=== PATIENT | female | born 1975 | race Caucasian/White ===

== ENCOUNTER 2020-10-28 10:33 | Emergency (ER) | payer BC, SELFPAY ==
--- NOTE | 2020-10-28 | CT_ITS ---
STUDY: CT ABDOMEN AND PELVIS WITH CONTRAST REASON FOR EXAM: Female, 45 years old. RUQ PAIN. PRIOR BALJEET/BSO, APPY AND TUMMY TUCK, BREAST IMPLANTS RADIATION DOSAGE (If Supplied By Facility): CTDIvol = ( 19.66 ) mGy, DLP = ( 1213.43 ) mGycm TECHNIQUE: Transaxial images were obtained from the dome of the diaphragm to the symphysis pubis without oral contrast. Oral and amp; IV Gastrografin and amp; 100mL Isovue-370 was administered. Sagittal and coronal images were reconstructed. Individualized dose optimization techniques were used for this CT. COMPARISON: None. FINDINGS: Unremarkable visualized lung bases. Partially visualized bilateral breast implants. The visualized portions of the heart are within normal limits. Fatty infiltration of the liver. No focal lesion is seen. Mild hepatomegaly. Normal gallbladder and extrahepatic biliary system. 1 cm low-density splenic lesion probably presenting cyst. Normal pancreas. Normal bilateral adrenal glands. Normal right kidney. Normal left kidney. Normal visualized stomach. Normal small intestine. The colon is under distended and suboptimally evaluated. There is non-visualization of the appendix. Normal abdominal aorta. Normal inferior vena cava. Normal retroperitoneum. Normal urinary bladder. There is absence of the uterus consistent with a prior hysterectomy. Normal abdominal wall. Degenerative changes of the level of L5-S1. CT/Abdomen/Pelvis WITH Contrast IMPRESSION: 1. Mild hepatomegaly and mild fatty infiltration of the liver. 2. Small splenic lesion probably representing cyst. 3. No demonstrated focal acute inflammatory process. Electronically Signed: Farrukh Kramer MD at 13:47 EST Tel , Service support ,
[2020-10-28 10:36] VITALS: BP 119/72; PULSE 84; RESP 16; TEMP 36.1; O2SAT 98; BMI 28.9
[2020-10-28 11:10] LABS: Absolute Lymphocyte Count 1.57 X10^3/uL (0.83-4.51); Absolute Neutrophil Count 3.6 X10^3/uL (2.0-7.7); Basophil# 0.03 X10^3/uL; Basophil% 0.5 % (0-1); Eosinophil# 0.16 X10^3/uL; Eosinophils% 2.8 % (0-5); Hematocrit 42.5 % (37-47); Hemoglobin 14.1 g/dL (12.0-15.0); Lymphocyte # 1.57 X10^3/ul (4.0); Lymphocyte % 27.7 % (19-41); Mean Corp Hgb Conc 33.2 g/dL (32-36); Mean Corpuscular Hgb 30.7 pg (27.0-32.0); Mean Corpuscular Volume 92.6 fL (81-99); Mean Platelet Vol. 9.4 fl (6.2-12.0); Monocyte# 0.26 X10^3/uL; Monocyte% 4.6 % (0-10); NRBC Flagged by Analyzer 0 % (0-5); Neutrophil # 3.63 X10^3/uL (2.7-7.7); Neutrophil % 64.2 % (47-70); Platelet Count 274 K/mm3 (150-450); RBC Distribution Width CV 13.5 % (11.6-14.6); Red Blood Count 4.59 M/mm3 (4.2-5.4); White Blood Count 5.7 K/mm3 (4.4-11.0)
--- NOTE | 2020-10-28 11:11 | ED.DCSUM_ITS ---
- ER Visit Summary Date of Service: 10/28/20 Chief Complaint: Abdominal pain, nausea, vomiting History of Present Illness: The patient is a 45 F who presents with abdominal pain that began yesterday. Patient states she had some nausea and vomiting yesterday. Patient describes her emesis as a dark sludge. Patient denies any hematemesis or coffee-ground emesis. Patient states she has been having some loose stools. Patient states these appear to be white. Patient denies any melena or hematochezia. Patient states her pain is over the epigastric area, right upper quadrant, and right lower quadrant. Patient describes her pain as sharp. Patient states nothing makes it worse and nothing makes it better. Patient does admit to some hematuria but denies any dysuria. Patient denies any fevers or chills. Physical Examination: Vital signs are stable. Patient is afebrile. Patient is in no acute distress. Oral mucosa is pink and moist. Neck is supple. Trachea is midline. There is no JVD. Heart was regular rate and rhythm. Lungs are clear and equal bilaterally. Abdomen is soft. Bowel sounds are normal. There is some epigastric, right upper quadrant, and right lower quadrant tenderness. There is no rebound or guarding noted. Cranial nerves II through XII are i ntact. There are no focal motor or sensory deficits noted peer extremities are intact. There is no calf tenderness or edema. Test Results: CBC was normal. Comprehensive metabolic profile was obtained. Total bilirubin was slightly elevated at 3.10, alk phos was 303, ALT was 831, and AST was 616. Lipase was normal. Urinalysis was normal. Because of the elevated liver enzymes, a CT scan of the abdomen pelvis was obtained. There is a fatty liver. There is no acute abnormality noted. This was interpreted by the radiologist and reviewed by myself. Emergency Department Course and Treatment: Patient is feeling better on reevaluation. Patient was instructed to eat a bland diet. Patient was instructed to follow-up with her primary care physician in 3 to 5 days for further evaluation. Patient understood and was agreeable with the plan. All questions were answered. Disposition: Discharge home Impression: 1. Abdominal pain 2. Hyperbilirubinemia 3. Transaminitis This note was generated with [employer] software. It may contain incorrect words, spelling, and punctuation that were not noted in review of the chart prior to signing ED Disposition - Plan for ED Patient: Disposition: Home or Assisted Living Diagnosis: Abdominal pain, Hyperbilirubinemia, Transaminitis Instructions: ED Abdominal Pain Unkn Cause Fem Referrals: Care Physician,No Primary [Primary Care Provider] - 5-7 Days
[2020-10-28 11:18] LABS: Mucous, Urine 0 SEEN /hpf (<or=2+); Red Blood Cells-Urine 0 SEEN /hpf (0-5)
[2020-10-28 11:19] LABS: Color, Urine Yellow (Yellow); Glucose, Dipstick Normal (Normal); Ketone-Dipstick Negative (Negative); Leukocyte Esterase-Dipstick 25 /ul (Negative); Nitrite-Dipstick Negative (Negative); Occult Blood-Urine 50 /ul (Negative); Protein-Dipstick 15 mg/dl (Negative); Urine Bilirubin Dipstick Negative (Negative); Urine Clarity Clear (Clear); Urine Urobilinogen 1 mg/dl (Normal)
[2020-10-28 11:24] LABS: ALB/GLOB Ratio 0.9 RATIO (0.9-2.4); AST(SGOT) 616 U/L (15-37); Alanine Aminotransfer ALT/SGPT 831 U/L (13-56); Albumin, Serum 3.7 g/dL (3.2-5.0); Alkaline Phosphatase 303 U/L (45-117); Anion Gap 5 (5-15); BUN 11 mg/dL (7-18); BUN/Creat Ratio 15.4 RATIO (10-20); Chloride 109 mmol/L (98-107); Creatinine, Serum 0.71 mg/dL (0.55-1.02); EST Glomerular Filtration Rate 94 mL/min (>60); Est Glom Filt Rate - Afr Amer 113 mL/min (>60); Estimated Creatinine Clearance 99.88 ml/min; Globulin 3.9 g/dL (2.2-4.2); Glucose 124 mg/dL (74-106); Lipase 129 U/L (73-393); Protein, Total 7.6 g/dL (6.4-8.2); Sodium Level 138 mmol/L (136-145)
[2020-10-28 11:25] LABS: Bacteria 1+ /hpf (None Seen); Squamous Epithelial Cells - UA 0-5 SEEN /hpf (5-10); White Blood Cells 0-5 SEEN /hpf (0-5)
[2020-10-28] MEDS: Morphine 4 MG/ML Syringe IV (11:29)
[2020-10-28] MEDS: Ondansetron 4 MG/2 ML Vial IV (11:29)
[2020-10-28 13:39] VITALS: BP 97/55; PULSE 67; RESP 15
[2020-10-28 14:46] VITALS: BP 104/69; PULSE 78; RESP 15
== END 2020-10-28 14:46 | disposition home or self-care (01) ==
PROVIDERS: Emergency Provider Emergency Medicine
DX: R10.11 Right upper quadrant pain (principal); R11.2 Nausea with vomiting, unspecified; F17.200 Nicotine dependence, unspecified, uncomplicated
CPT/HCPCS: 74177; 80053; 81001; 83690; 85025; 96374; 96375; 99283; Q9967; A4216; J2405

== ENCOUNTER → 2020-11-12 07:10 | Outpatient (CLI) | payer BC, SELFPAY ==
[2020-10-28 10:36] VITALS: BMI 28.9
--- NOTE | 2020-11-12 07:11 | BI_ITS ---
MAMMOGRAPHY - BILATERAL SCREENING REASON FOR EXAM: Female, 45 years old. Routine annual screening examination. PERTINENT HISTORY: Non-contributory. Bilateral breast implants. TECHNIQUE: Digital bilateral breast jocelyn (3D mammographic acquisition) in the CC and MLO projections. 2-D mediolateral oblique (MLO) and craniocaudad (CC) views of both breasts were obtained. CAD: Full Field Digital Mammography with Computer Added Detection was performed. COMPARISON: Comparison is made with prior outside examination dated 10/16/2017. FINDINGS: Breast Composition: The breasts are almost entirely fatty. There are no dominant masses or suspicious calcifications. Bilateral breast implants are now seen. No other significant abnormalities are identified. BI/SCRN MAMM (CAD)W/JOCELYN BILAT IMPRESSION: Negative screening mammogram. Bilateral breast implants. Yearly followup mammogram recommended. (A) ASSESSMENT CATEGORY: BIRADS Category 2: Benign. A letter regarding these results will be sent to the patient by the facility within 30 days. Approximately 10% of breast cancers are not detected by mammography. A normal mammogram should not delay biopsy of a clinically suspicious abnormality. [id number] Electronically Signed: Darvin Lin MD at 13:51 EST , Service support ,
== END ==
PROVIDERS: Referring Provider Nurse Practitioner; Visit Provider Nurse Practitioner
DX: Z12.31 Encounter for screening mammogram for malignant neoplasm of breast (principal)
CPT/HCPCS: 77063; 77067

== ENCOUNTER 2021-11-01 17:14 | Outpatient (CLI) | payer BC, SELFPAY ==
[2021-11-01 17:22] VITALS: BP 103/61; PULSE 102; RESP 16; TEMP 36.8; O2SAT 98; BMI 28.1
[2021-11-01] MEDS: 0.9% Saline Lock 10 ML Syringe IV (17:25)
[2021-11-01 17:56] VITALS: BP 98/66; PULSE 76; RESP 16; TEMP 37.1; O2SAT 99
[2021-11-01 18:44] VITALS: BP 105/59; PULSE 77; RESP 16; TEMP 37.2; O2SAT 97
== END 2021-11-01 23:59 | disposition home or self-care (01) ==
LOC: MS3OUT 17:14 → MS3 17:14
PROVIDERS: Referring Provider Nurse Practitioner Adult Health; Visit Provider Nurse Practitioner Adult Health
DX: U07.1 COVID-19 (principal)
CPT/HCPCS: J7050; M0245; Q0245; A4216

== ENCOUNTER 2023-08-24 20:06 | Emergency (ER) | payer BC, SELFPAY ==
[2023-08-24 20:11] VITALS: BP 115/76; PULSE 132; RESP 26; TEMP 37.3; O2SAT 93; BMI 27.0
--- NOTE | 2023-08-24 21:01 | EKG12_ITS ---
Test Reason : SOB/CP Blood Pressure : / mmHG Vent. Rate : 123 BPM Atrial Rate : 123 BPM P-R Int : 130 ms QRS Dur : 082 ms QT Int : 316 ms P-R-T Axes : 077 085 071 degrees QTc Int : 452 ms Sinus tachycardia Otherwise normal ECG Confirmed by KATHI MORSE, LAURE ([id number]), purchasing expeditor VENUS JOHNSON ([id number]) on 09/02/2023 10:21:50 AM Referred By: Confirmed By:LAURE ARMENTA MD
--- NOTE | 2023-08-24 21:25 | RAD_ITS ---
EXAM: XR CHEST, 1 VIEW CLINICAL INDICATION: chest pain TECHNIQUE: Frontal view of the chest. COMPARISON: No relevant prior studies available. FINDINGS: LUNGS AND PLEURAL SPACES: No significant abnormality. No consolidation or edema. No pneumothorax. No effusion. HEART: No significant abnormality. Cardiac silhouette not enlarged. MEDIASTINUM: Central airways and mediastinal contour are unremarkable. BONES/JOINTS: No significant abnormality. SOFT TISSUES: No significant abnormality. RAD/Chest 1 View (Portable) IMPRESSION: No radiographic evidence of acute cardiopulmonary disease. Electronically Signed: Bobo Sweet DO at 21:42 EST ,
[2023-08-24 22:06] VITALS: BP 97/69; PULSE 111; RESP 16; O2SAT 95
[2023-08-24 22:53] VITALS: O2SAT 95
--- NOTE | 2023-08-24 23:04 | EDS_ITS ---
HPI History of Present Illness Chief Complaint: Chest Pain Informant: patient Narrative Narrative: 48-year-old female presenting to the emergency room with a chief complaint of cough and tachycardia. Patient states that about 2 weeks ago on Thursday she abruptly became ill. By Thursday she was having low-grade fevers and cough. She went to an urgent care and was prescribed doxycycline and prednisone. She states that the prednisone really has not helped her and she continues to take the doxycycline which was prescribed for 10 days. She continues to have low- grade fevers and cough. Cough is occasionally productive. She states that her heart rate has been high at times up around 130 particularly with exertion. She denies any chest pain. She notes an intermittent cramp on the top of her foot. She was able to work yesterday. She states that since sitting in triage with a mask on she is started to feel better and wonders if the warm moist air underneath the mask is helped. She states that she did feel somewhat better in the cooler night air. No vomiting or diarrhea. She denies any urinary symptoms. PFSH PFSH Home Medications albuterol sulfate 90 mcg/actuation aerosol inhaler (Ventolin HFA) 2 puff inhalation Q4H PRN PRN Wheezing ##1 08/25/23 [Rx Last Taken Unknown] Allergy/AdvReac Type Severity Reaction Status Date / Time No Known Allergies Allergy Verified 08/24/23 20:10 Social History Smoking Status: Current every day smoker tobacco type: cigarettes ROS ROS ED Constitutional Constitutional ED: Reports chills and fever(s); Denies weight loss Eyes Eyes: Denies change in vision or diplopia ENT ENT ED: Denies ear pain, rhinorrhea or sore throat Cardiovascular Cardiovascular: Reports racing heartbeat; Denies chest pain, orthopnea or palpitations Respiratory/Chest Respiratory/Chest: Reports cough, dyspnea and dyspnea on exertion; Denies orthopnea Gastrointestinal Gastrointestinal: Denies abdominal pain, diarrhea, nausea or vomiting Genitourinary Genitourinary ED: Denies dysuria, hematuria or urinary frequency Musculoskeletal Musculoskeletal: Reports myalgias; Denies arthralgias, back pain or neck pain Integumentary Denies abscess or rash Neurologic Neurologic: Denies headache(s) or weakness Psychiatric Psychiatric: Denies anxiety, depression, suicidal ideation or suicidal thoughts Endocrine Endocrinology: Denies polydipsia, polyphagia or polyuria Allergic/Immunologic Allergic/Immunologic ED: Denies mouth swelling, tongue swelling or urticaria EXAM Physical Exam Const Vital Signs: 08/24/23 20:11 08/24/23 22:06 08/24/23 22:53 Temperature 99.2 F H Temperature Source Temporal Pulse Rate 132 H 111 H Respiratory Rate 26 H 16 Respiratory Effort Blood Pressure 115/76 97/69 Blood Pressure Mean 89 78 Pulse Ox 93 95 95 Oxygen Delivery Method Room Air Room Air Room Air 08/24/23 22:53 08/24/23 23:16 08/25/23 01:05 Temperature Temperature Source Pulse Rate 106 H 115 H Respiratory Rate 12 19 H Respiratory Effort Short of Breath Blood Pressure Blood Pressure Mean Pulse Ox 94 Oxygen Delivery Method Room Air Positive well nourished and well developed General Appearance ED: well developed HEENT Reports normocephalic, head/scalp atraumatic and moist mucous membranes Eyes PERRL and EOMs intact bilaterally Neck no lymphadenopathy, supple and no JVD Resp normal respiratory effort Resp Narrative: Slight expiratory wheeze with rhonchi at the bases at end expiration. This results in a cough Cardio regular rate, regular rhythm and no murmurs Rate: tachycardic GI normal to inspection, nondistended, normoactive bowel sounds and non-tender Palpation: soft Back/Spine no CVA tenderness and normal ROM Extremity normal to inspection General Extremety ED: Negative for edema General Extremity: Negative for edema Neuro oriented x3 and CN's II-XII intact bilaterally Sensorium / Orientation: alert Motor Exam: strength 5/5 throughout Psych mental status grossly normal Mood & Affect: Negative for depressed or tearful Skin no rashes or lesions noted and no wounds MDM MDM MDM Narrative Medical decision making narrative: No white count but my independent interpretation of this already chest x-ray is no acute process. Patient is in a sinus rhythm. White count 9.1. Troponin normal at 5. TSH 2.71. Glucose 128. Sodium potassium within normal limits. CO2 of 29 anion gap of 5. Normal creatinine. D-dimer significantly elevated 3.65. With ambulation the patient becomes tachycardic but is not hypoxic. Because of the unexplained tachycardia and the elevated D-dimer a CTA of the chest was obtained to rule out pulmonary embolism. This was negative for pulmonary embolism effusion or consolidation dissection. Atelectatic changes versus pneumonitis. I spoke with the patient regarding her results. She is going to decline prednisone/steroids which I think is reasonable as she is already trialed them last week with no success. I do question could this have been COVID and now has post-COVID tachycardia. Clinically though she appears well. I recommend her following up if not improving but giving this some more time. She would like to try to albuterol inhaler. She was advised this may make her heart rate slightly faster. She understands this. Currently laying in the bed talking with me she is 102 bpm. Stable blood pressure. Oxygenation at 96%. History & Record Review Discussion w/independent historian: Patient Lab Data Attestation: I reviewed the patient's lab results. Labs: Laboratory Results - last 24 hr 08/24/23 23:11 WBC 9.1 RBC 4.44 Hgb 13.4 Hct 41.3 MCV 93.0 MCH 30.2 MCHC 32.4 RDW Std Deviation 48.9 H RDW Coeff of Demetrio 14.4 Plt Count 223 MPV 9.2 Immature Gran % (Auto) 0.600 Neut % (Auto) 40.8 L Lymph % (Auto) 51.9 H [place] % (Auto) 4.6 Eos % (Auto) 1.5 Baso % (Auto) 0.6 Absolute Neuts (auto) 3.7 Absolute Lymphs (auto) 4.71 H Nucleated RBC % 0 Differential Comment SCANNED Atypical Lymphocytes RARE D-Dimer Quant (PE/DVT) 3.65 H* Sodium 138 Potassium 3.8 Chloride 104 Carbon Dioxide 29.0 Anion Gap 5 BUN 17 Creatinine 0.85 Estim Creat Clear Calc 77.86 Est GFR (MDRD) Af Amer 92 Est GFR (MDRD) Non-Af 76 BUN/Creatinine Ratio 20.1 H Glucose 128 H Calcium 8.7 Troponin I High Sens 5 TSH 2.71 Radiography Diagnostic Testing: Clinical Impression(s) from Imaging Studies Chest X-Ray 08/24/23 21:25 IMPRESSION: No radiographic evidence of acute cardiopulmonary disease. Electronically Signed: Bobo Sweet DO at 21:42 EST , Chest CTA 08/25/23 01:17 IMPRESSION: Negative CTA chest examination, without a demonstrated pulmonary embolism or arterial dissection. Mild posterior dependent atelectasis with diffuse interstitial prominence, suggestive of diffuse pneumonitis. No pleural effusion or pneumothorax. 3.6 mm nodule in the right upper lobe which may be further assessed with follow-up CT chest in 6-12 months to evaluate stability depending on risk factors. Electronically Signed: Angelia Castro MD at 2:47 EST , EKG Initial EKG: Attestation: I personally reviewed and interpreted this EKG as follows: Comments: Sinus tachycardia with a ventricular rate of 123 bpm no concerning features of ACS noted. Discharge Plan Triage Chief Complaint: Chest Pain ED Provider: Brandon Bond Dx/Rx/DC Orders Clinical Impression: Acute viral syndrome, Tachycardia Instructions: Understanding Tachycardia, ED Viral Syndrome (Adult) Prescriptions: New albuterol sulfate [Ventolin HFA] 90 mcg/actuation HFA aerosol inhaler 2 puff inhalation Q4H PRN PRN (Reason: Wheezing) Qty: 1 0RF Rx Instructions: with spacer Primary Care Provider: Care Physician,No Primary Referrals: Lupe Samuel MD [Med Staff - Active Staff] - As Needed (For cardiology) Care Physician,No Primary [Primary Care Provider] - Disposition Disposition: Home, Self Care
[2023-08-24] MEDS: Ipratropium/Albuterol Sulfate 3 ML AMPUL.NEB INHALATION (23:15)
[2023-08-24 23:16] VITALS: PULSE 106; RESP 12
[2023-08-24 23:29] LABS: Absolute Lymphocyte Count 4.71 X10^3/uL (0.83-4.51); Absolute Neutrophil Count 3.7 X10^3/uL (2.0-7.7); Basophil# 0.05 X10^3/uL; Basophil% 0.6 % (0-1); Eosinophil# 0.14 X10^3/uL; Eosinophils% 1.5 % (0-5); Hematocrit 41.3 % (37-47); Hemoglobin 13.4 g/dL (12.0-15.0); Lymphocyte # 4.71 X10^3/ul (0.83-4.51); Lymphocyte % 51.9 % (19-41); Mean Corp Hgb Conc 32.4 g/dL (32-36); Mean Corpuscular Hgb 30.2 pg (27.0-32.0); Mean Platelet Vol. 9.2 fl (6.2-12.0); Monocyte# 0.42 X10^3/uL; Monocyte% 4.6 % (0-10); NRBC Flagged by Analyzer 0 % (0-5); Neutrophil # 3.71 X10^3/uL (2.7-7.7); Neutrophil % 40.8 % (47-70); POSITIVE MORPHOLOGY YES; Platelet Count 223 K/mm3 (150-450); RBC Distribution Width CV 14.4 % (11.6-14.6); RBC Distribution Width SD 48.9 fl (35.1-43.9); Red Blood Count 4.44 M/mm3 (4.2-5.4); White Blood Count 9.1 K/mm3 (4.4-11.0)
[2023-08-24 23:40] LABS: Differential Indicated SCAN CRITERIA MET
[2023-08-24 23:54] LABS: Anion Gap 5 (5-15); BUN 17 mg/dL (7-18); BUN/Creat Ratio 20.1 RATIO (10-20); Calcium,Total 8.7 mg/dL (8.5-10.1); Chloride 104 mmol/L (98-107); Creatinine, Serum 0.85 mg/dL (0.55-1.02); EST Glomerular Filtration Rate 76 mL/min (>60); Est Glom Filt Rate - Afr Amer 92 mL/min (>60); Estimated Creatinine Clearance 77.86 ml/min; Glucose 128 mg/dL (74-106); Potassium 3.8 mmol/L (3.5-5.1); Sodium Level 138 mmol/L (136-145); Troponin-I HS (w/2H Reflex) 5 pg/mL (3.0-54.0)
[2023-08-25 00:12] LABS: Thyroid Stim Hormone (TSH) 2.71 uIU/mL (0.358-3.74)
[2023-08-25 00:34] LABS: Atypical Lymphocyte RARE %; Differential Comment SCANNED
[2023-08-25 01:05] VITALS: PULSE 115; RESP 19; O2SAT 94; O2SAT 95
[2023-08-25 01:16] LABS: D-Dimer Quantitative (DVT/PE) 3.65 FEU/ug/m (0.27-0.49)
--- NOTE | 2023-08-25 01:17 | CT_ITS ---
STUDY: CTA CHEST REASON FOR EXAM: Female, 48 years old. pulmonary embolism RADIATION DOSAGE (If Supplied By Facility): CTDIvol = ( 13.84 ) mGy, DLP = ( 421.83 ) mGycm TECHNIQUE: The examination was performed with the intravenous administration of IV 100mL Isovue-370. Post-processing of the angiographic images was performed, with multiplanar reformation and 3D reconstruction. Individualized dose optimization techniques were used for this CT. COMPARISON: None. FINDINGS: Normal enhancement of the main pulmonary artery and right and left pulmonary arteries. Normal enhancement of the bilateral peripheral pulmonary arteries. There is no demonstrated pulmonary embolism. Normal thoracic aorta and visualized great vessels. There is no demonstrated aortic dissection. Normal heart and pericardium. Normal mediastinum. Normal hilar regions. Normal visualized trachea and bronchi. The lungs are well expanded. Small nodule within the right upper lobe measuring 3.6 mm. Mild posterior dependent atelectasis. Mild diffuse interstitial and nodular prominence, remainder of the lung luna are clear. Normal pleura. Normal chest wall structures. Normal osseous structures. Normal visualized upper abdomen. CT/CTA Chest W/WO Contrast IMPRESSION: Negative CTA chest examination, without a demonstrated pulmonary embolism or arterial dissection. Mild posterior dependent atelectasis with diffuse interstitial prominence, suggestive of diffuse pneumonitis. No pleural effusion or pneumothorax. 3.6 mm nodule in the right upper lobe which may be further assessed with follow-up CT chest in 6-12 months to evaluate stability depending on risk factors. Electronically Signed: Angelia Castro MD at 2:47 EST ,
[2023-08-25 01:18] LABS: Reflex Troponin-HS? (from REC) Y
[2023-08-25 03:14] VITALS: BP 101/72; PULSE 103; RESP 18; O2SAT 94
== END 2023-08-25 03:15 | disposition home or self-care (01) ==
PROVIDERS: Emergency Provider Emergency Medicine; Visit Provider Emergency Medicine
DX: B34.9 Viral infection, unspecified (principal); R00.0 Tachycardia, unspecified; F17.210 Nicotine dependence, cigarettes, uncomplicated
CPT/HCPCS: 71045; 71275; 80048; 84443; 84484; 85025; 85379; 93005; 94640; 99284; Q9967; A4216

== ENCOUNTER → 2023-08-31 | Outpatient (CLI) | payer BC, SELFPAY | END | disposition home or self-care (01) | PROVIDERS: Referring Provider Physician Assistant Surgical; Visit Provider Physician Assistant Surgical | DX: R31.9 Hematuria, unspecified (principal) | CPT/HCPCS: 87086 ==

== ENCOUNTER → 2023-09-01 | Outpatient (CLI) | payer BC, SELFPAY ==
--- NOTE | 2023-09-01 08:41 | US_ITS ---
STUDY: ABDOMINAL ULTRASOUND -[left UPPER QUADRANT REASON FOR VISIT: Female, 48 years old splenic mass TECHNIQUE: Ultrasound evaluation of the left upper quadrant was performed with real-time and static grady-scale imaging. TECHNICAL QUALITY: Adequate. COMPARISON: None. FINDINGS: Spleen is enlarged measuring 16 x 7.2 x 7.6 cm . There is a cluster of tiny cysts or multi septated cyst measuring approximately 1.5 x 1.4 x 1.3 cm Left kidney measures 13 x 6.2 x 4.8 cm. No obstruction or mass. US/Abdomen Limited IMPRESSION: Probable multi septated cyst in the spleen measuring approximately 1.5 x 1.4. Retrospectively, there was a small hypoattenuated nodule in the spleen in October 2020 not significantly changed in size Electronically Signed: Ruperto Irvin MD at 19:55 EST ,
--- NOTE | 2023-09-01 14:43 | PFTCOMP ---
COMPLETE PULMONARY FUNCTION TEST INTERPRETATION Brief HPI: Patient is a 48-year-old female, currently under the care of Azucena Murphy, who presents to [facility] for complete pulmonary function tests secondary to diagnosis of interstitial lung disease. Respiratory therapist reports good effort and reproducible results. Interpretation: Forced expiration spirometry shows no large airways obstructive ventilatory defect with an FEV1 of 80% predicted. There is no significant bronchodilator response by strict ATS criteria. Spirograms are of good quality and plateau slowly, indicating slowly emptying areas of the lungs. The respiratory flow volume loop shows decreased expiratory flow rates at high lung volumes consistent with small airways obstruction. Lung volumes by body plethysmography show a normal total lung capacity at 5.82 L, 107% predicted. FRC and RV are elevated out of proportion. Lung volume measurements are consistent with hyperinflation and air-trapping. Diffusion capacity by carbon monoxide is decreased at 62% predicted. The airway resistance is slightly elevated. No previous pulmonary function tests were available for review. Impression: Isolated reduction in diffusion capacity with some stigmata of possible concomitant small airways disease
== END | disposition home or self-care (01) ==
PROVIDERS: Referring Provider Nurse Practitioner Family; Visit Provider Nurse Practitioner Family
DX: J84.89 Other specified interstitial pulmonary diseases (principal); R16.1 Splenomegaly, not elsewhere classified
CPT/HCPCS: 76705; 94060; 94726; 94729

== ENCOUNTER → 2023-09-18 | Outpatient (CLI) | payer BC, SELFPAY ==
--- NOTE | 2023-09-18 12:42 | BI_ITS ---
MAMMOGRAPHY - BILATERAL SCREENING REASON FOR EXAM: Female, 48 years old. Routine annual screening examination. PERTINENT HISTORY: Non-contributory. Bilateral breast reduction surgery. Bilateral implants. TECHNIQUE: Digital bilateral breast jocelyn (3D mammographic acquisition) in the CC and MLO projections. 2-D mediolateral oblique (MLO) and craniocaudad (CC) views of both breasts were obtained. CAD: Full Field Digital Mammography with Computer Added Detection was performed. COMPARISON: Comparison is made with prior study dated November 12, 2020. FINDINGS: Breast Composition: There are scattered areas of fibroglandular density. There are no dominant masses or suspicious calcifications. Stable appearance of the bilateral breast implants. Stable calcified nodule in the inferior medial aspect of the left breast. No other significant abnormalities are identified. There has been no significant change since the prior study. BI/SCRN MAMM (CAD)W/JOCELYN BILAT IMPRESSION: Stable bilateral screening mammogram. Yearly follow-up mammogram recommended. (A) ASSESSMENT CATEGORY: BIRADS Category 2: Benign. A letter regarding these results will be sent to the patient by the facility within 30 days. Approximately 10% of breast cancers are not detected by mammography. A normal mammogram should not delay biopsy of a clinically suspicious abnormality. [id number] Electronically Signed: Darvin Lin MD at 14:36 EST ,
--- NOTE | 2023-09-18 13:59 | CT_ITS ---
STUDY: CT ABDOMEN AND PELVIS WITH AND WITHOUT CONTRAST REASON FOR EXAM: Female, 48 years old. abdominal pain, elevated WBC RADIATION DOSAGE (If Supplied By Facility): CTDIvol = ( 15.66 ) mGy, DLP = ( 1290.90 ) mGycm TECHNIQUE: Transaxial images were obtained from the dome of the diaphragm to the symphysis pubis with oral contrast. Oral Gastrografin was administered. Sagittal and coronal images were reconstructed. Individualized dose optimization techniques were used for this CT. COMPARISON: 10/28/2020 FINDINGS: The visualized lung bases are unremarkable. The visualized portions of the heart are within normal limits. Normal liver. There are surgical clips in the gallbladder fossa consistent with a prior cholecystectomy. 1 cm cyst in the inferior aspect of the spleen. Normal pancreas. Normal bilateral adrenal glands. 2 mm nonobstructing stone lower pole right kidney. No hydronephrosis, ureteral stone, ureteral dilatation. Normal left kidney. Normal visualized stomach. Normal small intestine. Normal colon. There is non-visualization of the appendix. Normal abdominal aorta. Normal inferior vena cava. Normal retroperitoneum. Normal urinary bladder. Normal abdominal wall. Normal osseous structures. CT/CT Abd/Pelvis W/WO Contrast IMPRESSION: 2 mm nonobstructing right renal stone. Electronically Signed: Fercho Fischer MD at 18:03 EST ,
== END | disposition home or self-care (01) ==
PROVIDERS: PCP Nurse Practitioner Family; Referring Provider Nurse Practitioner Family; Visit Provider Nurse Practitioner Family
DX: Z12.31 Encounter for screening mammogram for malignant neoplasm of breast (principal); R10.13 Epigastric pain
CPT/HCPCS: 74178; 77063; 77067; Q9967; A4216

== ENCOUNTER → 2023-09-18 | Outpatient (CLI) | payer BC, SELFPAY ==
[2023-09-18 12:50] LABS: Absolute Lymphocyte Count 5.66 X10^3/uL (0.83-4.51); Basophil# 0.04 X10^3/uL; Basophil% 0.3 % (0-1); Eosinophil# 0.12 X10^3/uL; Eosinophils% 0.8 % (0-5); Hematocrit 42.3 % (37-47); Lymphocyte # 5.66 X10^3/ul (0.83-4.51); Lymphocyte % 38.4 % (19-41); Mean Corp Hgb Conc 33.1 g/dL (32-36); Mean Corpuscular Volume 90.6 fL (81-99); Mean Platelet Vol. 9.3 fl (6.2-12.0); Monocyte# 0.87 X10^3/uL; Monocyte% 5.9 % (0-10); NRBC Flagged by Analyzer 0 % (0-5); Neutrophil # 8.01 X10^3/uL (2.7-7.7); Neutrophil % 54.3 % (47-70); POSITIVE DIFFERENTIAL YES; POSITIVE MORPHOLOGY YES; Platelet Count 391 K/mm3 (150-450); RBC Distribution Width CV 14.6 % (11.6-14.6); RBC Distribution Width SD 48.6 fl (35.1-43.9); Red Blood Count 4.67 M/mm3 (4.2-5.4); White Blood Count 14.7 K/mm3 (4.4-11.0)
[2023-09-18 12:58] LABS: Differential Indicated SCAN CRITERIA MET
[2023-09-18 13:13] LABS: AST(SGOT) 20 U/L (15-37); Alanine Aminotransfer ALT/SGPT 26 U/L (13-56); Albumin, Serum 3.9 g/dL (3.2-5.0); Alkaline Phosphatase 187 U/L (45-117); Bilirubin, Direct 0.13 mg/dL (0.00-0.30); Globulin 3.8 g/dL (2.2-4.2); Protein, Total 7.7 g/dL (6.4-8.2)
== END | disposition home or self-care (01) ==
LOC: LABSPEC 12:36
PROVIDERS: PCP Nurse Practitioner Family; Referring Provider Nurse Practitioner Family; Visit Provider Nurse Practitioner Family
DX: R10.13 Epigastric pain (principal)
CPT/HCPCS: 80076; 85025

== ENCOUNTER 2023-09-20 16:20 | Emergency (ER) | payer BC, SELFPAY ==
[2023-09-20 16:21] VITALS: BP 113/71; PULSE 128; RESP 16; TEMP 36.6; O2SAT 99; BMI 26.3
--- NOTE | 2023-09-20 16:52 | EX.ED.GENINJ ---
HPI <TIP Simeon - Last Filed: 09/20/23 18:24> History of Present Illness Chief Complaint: Other, Pain/Inj Narrative Narrative: 48-year-old female presents with multiple complaints. She states early in August she was treated for pneumonia with doxycycline and prednisone which she took for 4 days. She was seen in the ED on 08/24 because she was not feeling better and was tachycardic and had a CTA which showed atelectasis and pneumonitis. She followed up with her PCP who prescribed Trelegy, fenofibrate and vitamins. A couple days ago she developed hives which improved with Yarely. She states over the last 4 days she has developed joint pains that change locations. Sometimes she has sharp pain in her shoulders, knees, or ankles. She feels like it is in the tendons. Today she has pain in her right shoulder and left side of her neck and states she has to hold her head up or the tendon will not support her head. She has no headache. No radicular pain into her extremities. No fever or chills. PFSH <TIP Simeon - Last Filed: 09/20/23 18:24> PFSH Home Medications albuterol sulfate 90 mcg/actuation aerosol inhaler (Ventolin HFA) 2 puff inhalation Q4H PRN PRN Wheezing ##1 08/25/23 [Rx Last Taken Unknown] fluticasone fur. 100 mcg-umeclid 62.5 mcg-vilant 25 mcg inhalat.powder (Trelegy Ellipta) 1 inh inhalation Q24H 09/20/23 [History Last Taken Unknown] naproxen 500 mg tablet (Naprosyn) 500 mg PO BID PRN pain #20 tabs 09/20/23 [Rx Last Taken Unknown] Allergy/AdvReac Type Severity Reaction Status Date / Time No Known Allergies Allergy Verified 09/20/23 16:24 Social History Smoking Status: Current every day smoker tobacco type: cigarettes ROS <TIP Simeon - Last Filed: 09/20/23 18:24> ROS ED ROS Narrative Constitutional: Negative for fever, chills, malaise. CVS: Negative for palpitations, chest pain, syncope. Respiratory: Negative for shortness of breath. GI: Negative for abdominal pain, nausea, vomiting, melena, hematochezia. : Negative for dysuria, hematuria or frequency. Neuro: Negative for headache, motor/sensory dysfunction. Musc: Positive for arthralgias. EXAM <TIP Simeon - Last Filed: 09/20/23 18:24> Physical Exam Narrative Exam Narrative: CONST: Patient sitting in no acute distress. EYES: Normal inspection. ENT: Normal inspection, moist mucous membranes. NECK: Normal inspection. No midline tenderness or step-offs, no meningismus. RESP: No respiratory distress, CTAB. CVS: Regular rate and rhythm, no murmur, no gallop. SKIN: Color normal, no rash, warm, dry, intact. EXTREMITIES: Normal appearance, pain over right trapezius, no bony tenderness of upper or lower extremities, 2+ radial DP pulses. Pain with movement of the right shoulder joint. NEURO: Oriented x4. PSYCH: Normal affect. Const Vital Signs: 09/20/23 16:21 09/20/23 17:15 09/20/23 17:53 Temperature 97.9 F Temperature Source Temporal Pulse Rate 128 H 95 Respiratory Rate 16 20 H Respiratory Effort Normal Non-Labored Respiratory Pattern Normal Blood Pressure 113/71 102/69 Blood Pressure Mean 85 80 Pulse Ox 99 94 Oxygen Delivery Method Room Air Room Air 09/20/23 18:31 Temperature Temperature Source Pulse Rate 95 Respiratory Rate 18 Respiratory Effort Respiratory Pattern Blood Pressure 99/77 Blood Pressure Mean 84 Pulse Ox 96 Oxygen Delivery Method <Dr. Familia Williamson MD - Last Filed: 09/20/23 19:47> Physical Exam Const Vital Signs: 09/20/23 16:21 09/20/23 17:15 09/20/23 17:53 Temperature 97.9 F Temperature Source Temporal Pulse Rate 128 H 95 Respiratory Rate 16 20 H Respiratory Effort Normal Non-Labored Respiratory Pattern Normal Blood Pressure 113/71 102/69 Blood Pressure Mean 85 80 Pulse Ox 99 94 Oxygen Delivery Method Room Air Room Air 09/20/23 18:31 Temperature Temperature Source Pulse Rate 95 Respiratory Rate 18 Respiratory Effort Respiratory Pattern Blood Pressure 99/77 Blood Pressure Mean 84 Pulse Ox 96 Oxygen Delivery Method MDM <TIP Simeon - Last Filed: 09/20/23 18:24> MDM MDM Narrative Medical decision making narrative: History gathered from: Patient and spouse Patient presents with traveling arthralgias over the last 4 days. She appears uncomfortable but nontoxic. She is tachycardic at 128 with otherwise normal vital signs. She is tearful and crying during the exam which may contribute to her elevated heart rate. She states her right shoulder hurts and is having her lift her arm up and down for her. I can move it to full passive range of motion although she does have pain in the shoulder. She is tender over right trapezius. She is neurovascularly intact. Labs show white count of 12.0 down from 2 days ago. Normal electrolytes and renal function, glucose 146 with normal CO2 and anion gap, total CK is 33 which rules out rhabdomyolysis. Patient was concerned with her history of pneumonia and her white count that she may still have residual infection. CXR shows no acute process. She feels improved after Toradol. Her symptoms may be from her recently starting fenofibrate but I discussed if it does not improve after she stopped this to see her doctor for a rheumatologic workup for polyarthralgias. I prescribed naproxen and she was discharged in stable condition. Differential: Medication side effect, rheumatologic disease, electrolyte abnormality, rhabdomyolysis Lab Data Attestation: I reviewed the patient's lab results. Labs: Laboratory Results - last 24 hr 09/20/23 16:52 WBC 12.0 H RBC 4.35 Hgb 12.8 Hct 40.0 MCV 92.0 MCH 29.4 MCHC 32.0 RDW Std Deviation 48.5 H RDW Coeff of Demetrio 14.4 Plt Count 335 MPV 9.0 Immature Gran % (Auto) 0.400 Neut % (Auto) 73.0 H Lymph % (Auto) 19.7 [place] % (Auto) 5.8 Eos % (Auto) 0.8 Baso % (Auto) 0.3 Absolute Neuts (auto) 8.8 H Absolute Lymphs (auto) 2.36 Nucleated RBC % 0 Sodium 136 Potassium 3.9 Chloride 106 Carbon Dioxide 26.0 Anion Gap 4 L BUN 11 Creatinine 0.68 Estim Creat Clear Calc 97.32 Est GFR (MDRD) Af Amer 118 Est GFR (MDRD) Non-Af 97 BUN/Creatinine Ratio 16.1 Glucose 146 H Calcium 9.2 Total Creatine Kinase 33 Radiography Diagnostic Testing: Clinical Impression(s) from Imaging Studies Chest X-Ray 09/20/23 17:00 IMPRESSION: No radiographic evidence of acute cardiopulmonary disease. Electronically Signed: Bobo Sweet DO at 17:10 EST , ED attending interpretation of 1-view chest x-ray shows normal heart size, no acute infiltrate. <Dr. Familia Williamson MD - Last Filed: 09/20/23 19:47> [facility] Lab Data Labs: Laboratory Results - last 24 hr 09/20/23 16:52 WBC 12.0 H RBC 4.35 Hgb 12.8 Hct 40.0 MCV 92.0 MCH 29.4 MCHC 32.0 RDW Std Deviation 48.5 H RDW Coeff of Demetrio 14.4 Plt Count 335 MPV 9.0 Immature Gran % (Auto) 0.400 Neut % (Auto) 73.0 H Lymph % (Auto) 19.7 [place] % (Auto) 5.8 Eos % (Auto) 0.8 Baso % (Auto) 0.3 Absolute Neuts (auto) 8.8 H Absolute Lymphs (auto) 2.36 Nucleated RBC % 0 Sodium 136 Potassium 3.9 Chloride 106 Carbon Dioxide 26.0 Anion Gap 4 L BUN 11 Creatinine 0.68 Estim Creat Clear Calc 97.32 Est GFR (MDRD) Af Amer 118 Est GFR (MDRD) Non-Af 97 BUN/Creatinine Ratio 16.1 Glucose 146 H Calcium 9.2 Total Creatine Kinase 33 Radiography Diagnostic Testing: Clinical Impression(s) from Imaging Studies Chest X-Ray 09/20/23 17:00 IMPRESSION: No radiographic evidence of acute cardiopulmonary disease. Electronically Signed: Bobo Sweet DO at 17:10 EST , Treatment and Re-Evaluation Narrative: I have personally performed a face to face assessment of the patient and have reviewed the LINETTE Note. I performed a substantive portion of the visit including all aspects of the following. My spears findings include: History: Patient complains of sore joints and tendons. They move all different areas of her body. She is also getting intermittent hives. This started after she started fenofibrate. She now stopped the medicine but its only been a few days and it has a half-life up to 30 hours. Antihistamines do help somewhat. She has seen her doctor about this. Exam: Patient awake alert. There are no signs of swollen actual joints although she does have soreness and stiffness in many areas. There is a little bit of hint of hives here and there but it is very mild. No lymphangitic streaking. Lungs are clear. Medical Decision Making: Patient with blood work done including CPK which was normal. I think this is likely a reaction to her fenofibrate. She has stopped this but the reaction can continue and the medicine does have a long half-life. We discussed options for pain control. Since she did get good relief with Toradol, I think Naprosyn may be one of her best options. Discharge Plan Triage Chief Complaint: Other, Pain/Inj ED Midlevel Provider: Nicole Peacock ED Provider: Familia Williamson Dx/Rx/DC Orders Clinical Impression: Polyarthralgia Instructions: ED Arthralgia Prescriptions: New naproxen [Naprosyn] 500 mg tablet 500 mg PO BID PRN (Reason: pain) Qty: 20 0RF No Action albuterol sulfate [Ventolin HFA] 90 mcg/actuation HFA aerosol inhaler 2 puff inhalation Q4H PRN PRN (Reason: Wheezing) Qty: 1 0RF Rx Instructions: with spacer Trelegy Ellipta 100-62.5-25 mcg blister with device 1 inh INHALATION Q24H Patient Comments: INHALE 1 PUFF BY MOUTH DAILY Primary Care Provider: Azucena Murphy Referrals: Azucena Murphy, ROBERTO-C [Primary Care Provider] - Activity Restrictions/Additional Instructions: Take naproxen as needed and follow up with your primary care doctor Disposition Disposition: Home, Self Care Discharge Date/Time: 09/20/23 18:56
[2023-09-20] MEDS: Ketorolac 30 MG/ML Syringe IV (17:00)
--- NOTE | 2023-09-20 17:00 | RAD_ITS ---
EXAM: XR CHEST, 1 VIEW CLINICAL INDICATION: cough TECHNIQUE: Frontal view of the chest. COMPARISON: 08/24/2023 FINDINGS: LUNGS AND PLEURAL SPACES: No significant abnormality. No consolidation or edema. No pneumothorax. No effusion. HEART: No significant abnormality. Cardiac silhouette not enlarged. MEDIASTINUM: Central airways and mediastinal contour are unremarkable. BONES/JOINTS: No significant abnormality. No acute fracture. SOFT TISSUES: No significant abnormality. RAD/Chest 1 View (Portable) IMPRESSION: No radiographic evidence of acute cardiopulmonary disease. Electronically Signed: Bobo Sweet DO at 17:10 EST ,
[2023-09-20 17:02] LABS: Absolute Lymphocyte Count 2.36 X10^3/uL (0.83-4.51); Absolute Neutrophil Count 8.8 X10^3/uL (2.0-7.7); Basophil# 0.03 X10^3/uL; Basophil% 0.3 % (0-1); Eosinophil# 0.09 X10^3/uL; Eosinophils% 0.8 % (0-5); Hemoglobin 12.8 g/dL (12.0-15.0); Lymphocyte # 2.36 X10^3/ul (0.83-4.51); Lymphocyte % 19.7 % (19-41); Mean Corpuscular Hgb 29.4 pg (27.0-32.0); Monocyte# 0.69 X10^3/uL; Monocyte% 5.8 % (0-10); NRBC Flagged by Analyzer 0 % (0-5); Neutrophil # 8.78 X10^3/uL (2.7-7.7); Platelet Count 335 K/mm3 (150-450); RBC Distribution Width CV 14.4 % (11.6-14.6); RBC Distribution Width SD 48.5 fl (35.1-43.9); Red Blood Count 4.35 M/mm3 (4.2-5.4)
[2023-09-20 17:23] LABS: Anion Gap 4 (5-15); BUN 11 mg/dL (7-18); BUN/Creat Ratio 16.1 RATIO (10-20); CPK Total, Creatine Kinase 33 U/L (26-192); Calcium,Total 9.2 mg/dL (8.5-10.1); Chloride 106 mmol/L (98-107); Creatinine, Serum 0.68 mg/dL (0.55-1.02); EST Glomerular Filtration Rate 97 mL/min (>60); Est Glom Filt Rate - Afr Amer 118 mL/min (>60); Estimated Creatinine Clearance 97.32 ml/min; Glucose 146 mg/dL (74-106); Potassium 3.9 mmol/L (3.5-5.1); Sodium Level 136 mmol/L (136-145)
[2023-09-20 17:53] VITALS: BP 102/69; PULSE 95; RESP 20; O2SAT 94
[2023-09-20 18:31] VITALS: BP 99/77; PULSE 95; RESP 18; O2SAT 96
== END 2023-09-20 18:56 | disposition home or self-care (01) ==
PROVIDERS: Physician Assistant; Emergency Provider Emergency Medicine; PCP Nurse Practitioner Family; Visit Provider Emergency Medicine
DX: M25.511 Pain in right shoulder (principal); F17.210 Nicotine dependence, cigarettes, uncomplicated
CPT/HCPCS: 71045; 80048; 82550; 85025; 96374; 99282; A4216

== ENCOUNTER → 2023-10-02 | Outpatient (CLI) | payer BC, SELFPAY ==
[2023-10-02 12:34] VITALS: PULSE 105; PULSE 107; PULSE 108; PULSE 87; PULSE 90; PULSE 96; O2SAT 95; O2SAT 96; O2SAT 97
--- NOTE | 2023-10-03 05:41 | PCM.PSN.6M ---
PSN 6 Minute Walk Test 6 Minute Walk Test 6 Minute Walk Test: 6 Minute Walk Test PSN:6-Minute Walk Test Start: 10/02/23 12:33 Freq: Status: Active Protocol: [id number] Document 10/02/23 12:34 HELEN (Rec: 10/02/23 12:35 HELEN [id number]) 6 Minute Walk Test Date Performed 10/02/23 Time Performed 12:30 Height 5 ft 7 in Weight: 73.936 kg Weight in Pounds 163.[address]: Azucena Murphy Assistive device used: None Pre-test Oxygen Delivery Method Room Air Pulse Ox 95 Pulse Rate (60-100) 87 Dyspnea Tristian Scale (0-10) 0 Exertion [place]istian Scale (6-20) 6 1st minute Oxygen Delivery Method Room Air Pulse Ox 97 Pulse Rate (60-100) 96 2nd minute Oxygen Delivery Method Room Air Pulse Ox 95 Pulse Rate (60-100) 105 H 3rd minute Oxygen Delivery Method Room Air Pulse Ox 96 Pulse Rate (60-100) 108 H 4th minute Oxygen Delivery Method Room Air Pulse Ox 95 Pulse Rate (60-100) 108 H 5th minute Oxygen Delivery Method Room Air Pulse Ox 96 Pulse Rate (60-100) 107 H 6th minute Oxygen Delivery Method Room Air Pulse Ox 96 Pulse Rate (60-100) 108 H Dyspnea Tristian Scale (0-10) 1 Exertion [place]istian Scale (6-20) 11 Post-test Oxygen Delivery Method Room Air Pulse Ox 97 Pulse Rate (60-100) 90 Full Laps Walked 24 Partial Lap, Number of Tiles Walked 0 Total Distance Walked (ft) 1416 Interpretation Interpretation: The patient was able to ambulate 1416 feet over the course of 6 minutes on room air with no assistive devices or breaks. No significant desaturation, but did have an element of tachycardia as high as 108 bpm. These findings are consistent with a cardiovascular limitation exercise tolerance. Recommendations Recommendations: No supplemental oxygen is indicated at this time.
== END | disposition home or self-care (01) ==
LOC: PSN 12:13
PROVIDERS: PCP Nurse Practitioner Family; Referring Provider Nurse Practitioner Family; Visit Provider Nurse Practitioner Family
DX: R16.1 Splenomegaly, not elsewhere classified (principal); J84.89 Other specified interstitial pulmonary diseases
CPT/HCPCS: 94618

== ENCOUNTER → 2023-10-08 | Outpatient (CLI) | payer BC, OTHER, SELFPAY ==
--- OUTSIDE RECORDS SUMMARY | 2023-10-08 11:09 | XMS RPT_ITS | CCD ---
Author Name Unknown Address [email or web address] [place] [address] Organization [facility] Care Team Providers Care Funnel Coater Name Role Phone Manny Gamboa Unavailable Unavailable PROVIDER, UNKNOWN Unavailable Unavailable Manny Gamboa Unavailable Unavailable MANNY GAMBOA Unavailable Unavaila ble MANNY GAMBOA Unavailable Unavaila ble Melinda Schaeffer Unavailable Julius Harmon Unavailable Rolando Ayala Unavailable Unavailable Unavailable Unavailable Roxanne Elise Unavailable Unavailable Angelina Correa Unavailable Melinda Schaeffer CNP Unavailable Julius Harmon MD Unavailable Roxanne Elise LPN Unavailable Unavailable Rolando Ayala LPN Unavailable Unavailable Angelina Correa DO Unavailable Unavailable Unavailable Liya Calero Unavailable Melina MORSE, Allie Valdovinos Unavailable Melinda Schaeffer Attending Unavailable Melinda Schaeffer Consulting Unavailable Liya Almazan PA-C Unavailable Pcp MANAGER RECRUITING, No Primary Care Provider Unavailabl e Pcp MANAGER RECRUITING, No Primary Care Provider Unavailabl e Allergies Allergy Classification Reported Allergen(s) Allergy Type Date of Onset Reaction(s) Facility (3 sources) Morphine; Translations: [MORPHINE] Drug Allergy 11-02-2020 Rash [facility] (3 sources) oxyCODONE; Translations: [OXYCODONE] Drug Allergy 02-12-2021 Mental Status Change [facility] Medications Current Medications Medication Drug Class(es) Dates Sig (Normalized) Sig (Original) doxycycline hyclate 100 mg oral tablet (1 source) Tetracycline-clas s Drug Start: 08-16-2023 End: 08-26-2023 take 1 tablet by mouth twice daily doxycycline (VIBRA-TABS) 100 mg tablet Take 1 tablet by mouth two times a day for 10 days. 20 tablet 0 08/16/2023 08/26/2023 Active Completed/Discontinued Medications Medication Drug Class(es) Dates Sig (Normalized) Sig (Original) ascorbic acid 1000 mg oral tablet (2 sources) Vitamin C take 1 tablet by gladis th once daily Ascorbic Acid (VITAMIN C) 1,000 mg tablet Take 1,000 mg by mouth once daily. 0 Active Problems Active Problems Problem Classification Problem Date Documented Da te Episodic/Chronic Abdominal pain (20 sources) Abdominal pain; Translations: [Abdominal pain] 11-30-2020 Episodic Past or Other Problems Problem Classification Problem Date Documented Da te Episodic/Chronic Biliary tract disease (19 sources) Biliary calculus; Translations: [Cholelithiasis] Resolved: 03-05-2021 11-30-2020 Episodic Results Test Name Value Interpretation Reference Range Facil ity Vital Signs Date Time Vital Sign Value Performing Clinician Facility 10-30-2021 13:08-0500 Body height 172.72 cm Rolando Ayala LPN [facility] Work Phone: 10-30-2021 13:08-0500 Body mass index (BMI) [Ratio] 27.98 kg/m2 Rolando Ayala LPN [facility] Work Phone: 10-30-2021 13:08-0500 Body surface area Derived from formula 1.97 m2 Rolando Ayala PROCESS CONTROL SUPERVISOR [facility] Work Phone: 10-30-2021 13:08-0500 Body temperature 99.6 [degF] Rolando Ayala PROCESS CONTROL SUPERVISOR [facility] Work Phone: Encounters Encounter Date Encounter Type Care Provider Facility Start: 09-08-2023 Telephone encounter Liya tse PA-C Work Phone: [facility] Procedures Date Procedure Procedure Detail Performing Clinician Start: 10-31-2021 End: 10-31-2021 Virtual Office Visit Comments: See Note; NOTES: [facility] [address] [place] [address] OFFICE VISIT Date of Service: 10/31/21 MR#: [id number] Acct: [id number] Patient: GINNY YOO Rep #: [id number] : 1975 Provider: PAO verdugo Age/Sex: 46/F Location[place] [facility] Status: Signed Intake Intake Visit Reasons: COVID, MA Allergies No Known Allergies Allergy (Verified 10/31/21 10:32) PFSH Social History Smoking Status: Current every day smoker HPI HPI Details: Patient was informed that this visit will be billed to patient. This visit was conducted during COVID-19 pandemic. Details: Patient was informed that this visit will be billed to patient. This visit was conducted during COVID-19 pandemic. Statement read to the patient: This telehealth visit is being offered during our stay at home measures in response to the pandemic. It is subject to an office visit charge. There are also charges for the monoclonal antibody infusion which may or may not be covered by your insurance. The patient consents to continue. The FDA has authorized the emergency use of monoclonal antibody treatment (bamlanivimab/etesevimab or casirivimab/imdevimab) for mild to moderate COVID-19 in adults and pediatric patients with positive results of direct SARS-Cov-2 viral testing ages 12 and older, at least 40 kg, who are at high risk for progressing to severe COVID-19 and or hospitalization. The significant known and potential risks (allergic reactions, worsening of symptoms after treatment, or side effects from injection including brief pain, bleeding, bruising of the skin, soreness, swelling, possible infection at the infusion site) and benefits (decrease chance of progression to severe COVID-19) of a monoclonal antibody infusion, and the extent to which such potential risks and benefits are unknown. Note that worsening symptoms after treatment may occur but it is unknown whether these symptoms are related to treatment or are due to the progression of COVID-19. Worsening symptoms may include: fever, difficulty breathing, rapid or slow heart rate, tiredness, weakness or confusion. If these symptoms occur, patients are encouraged to seek immediate medical attention. These treatments are still being studied, all possible side effects may not be listed or known at this time. Patients treated with monoclonal antibody infusion should continue to self-isolate and use infection control measures (such as wear mask, isolate, social distance, avoid sharing personal items, clean and disinfect high touch surfaces, and frequent handwashing) according to the CDC guidelines. The fact sheet will be provided prior to the administration of the medication. Oral medications have received authorization from the FDA to treat ghic-jj-kqfegavq COVID-19 in patients at high risk for progression to severe COVID-19. These medications may not be appropriate for all patients and available drug supply may be limited. However, these oral medications may be more effective against the omicron variant. The patient had the option to refuse or accept treatment with monoclonal antibody therapy. The patient was informed that the number of people treated with monoclonal antibody therapy at this time is small. Due to the changes in the virus that causes COVID-19, some monoclonal antibody treatments may not be effective for all forms of the virus (known as variants). This includes the omicron variant. The patient stated understanding of this information communicated and wished to proceed with monoclonal antibody infusion therapy. COVID + test date: 10/30/21 @ [facility] ZARAGO[facility] Sx Onset: 10/26/21 Sx: cough, sinus congestion, fever, sore throat, PND, fatigue O2: NO Ht: 5'7 Wt: 180 BMI: 28.2 Age: 46 Vaccine: Pfizer x2 Qualifier: BMI 28.2 ROS Const Constitutional: Positive for fatigue, fever(s), decreased energy and malaise ENT ENT: Positive for sinus pressure, post nasal drip and sore throat Resp Respiratory: Positive for cough Endo Endocrine: Positive for fatigue Exam Const General: cooperative and no acute distress Resp Effort Inspection: normal respiratory effort and able to speak in complete sentences Neuro General: patient alert, patient awake and patient oriented x3 Cognition: normal cognition Speech: speech normal Psych Mental Status: mental status grossly normal Mood: congruent mood Attitude: cooperative Thought Process: normal Thought Content: normal Judgment: judgment good Details: Details:: Exam was limited due to phone visit with no video. Quality Reporting Tobacco Screening ([facility] 138) Smoking Status: Current every day smoker Coding Level of Care Code New Pt Level 1 Telephone Patient Type New History Problem Focused Exam Problem Focused Medical Decision Making Straight Forward Diagnoses COVID-19 U07.1 BMI 28.0-28.9,adult Z68.28 Time Spent (min) 10 Comment 98419 Assessment and Plan Assessment and Plan (1) COVID-19: Status: Acute Plan: The patient remains appropriate for the Monoclonal Antibody Infusion. The patient states understanding of this information communicated and wishes to proceed with monoclonal antibody infusion therapy. Patient agrees to receive either balanivimab/etesvimab or casirivimab/imdevimab upon availability. (2) BMI 28.0-28.9,adult: Status: Acute 10/31/21 1037 <Electronically signed by Alisson Guy NP EVP MANAGING DIRECTOR-C> Date Alisson Guy NP EVP MANAGING DIRECTOR-C Cosigner Signature: Date (if applicable) CC: EVP MANAGING DIRECTOR-C Melinda Schaeffer CONVERTING SUPERVISOR Work Phone: Start: 11-12-2020 End: 02-15-2021 SCRN MAMM (CAD)W/JOCELYN BILAT Comments: See Note; NOTES: [facility] Imaging Services [address] [place] [id number] SCRN MAMM (CAD)W/JOCELYN BILAT MR#: [id number] Acct: [id number] Name: GINNY YOO Rep #: [id number] : 1975 F 45 From: Darvin dee MD PCP: Care Physician, No Primary Status: [facility] Study: SCRN MAMM (CAD)W/JOCELYN BILAT Date of Exam: 11/01 Exam# [id number] Ordering Dr: Melinda Schaeffer NP EVP MANAGING DIRECTOR-C MAMMOGRAPHY - BILATERAL SCREENING REASON FOR EXAM: Female, 45 years old. Routine annual screening examination. PERTINENT HISTORY: Non-contributory. Bilateral breast implants. TECHNIQUE: Digital bilateral breast jocelyn (3D mammographic acquisition) in the CC and MLO projections. 2-D mediolateral oblique (MLO) and craniocaudad (CC) views of both breasts were obtained. CAD: Full Field Digital Mammography with Computer Added Detection was performed. COMPARISON: Comparison is made with prior outside examination dated 10/16/2017. FINDINGS: Breast Composition: The breasts are almost entirely fatty. There are no dominant masses or suspicious calcifications. Bilateral breast implants are now seen. No other significant abnormalities are identified. BI/SCRN MAMM (CAD)W/JOCELYN BILAT IMPRESSION: Negative screening mammogram. Bilateral breast implants. Yearly followup mammogram recommended. (A) ASSESSMENT CATEGORY: BIRADS Category 2: Benign. A letter regarding these results will be sent to the patient by the facility within 30 days. Approximately 10% of breast cancers are not detected by mammography. A normal mammogram should not delay biopsy of a clinically suspicious abnormality. [id number] Electronically Signed: Darvin Lin MD at 13:51 EST , Service support , CC: EVP MANAGING DIRECTOR-Andressa Schaeffer; No Primary Care Physician Grinding Machine Operator Automatic: Signed Melinda Schaeffer Work Phone: Start: 11-03-2020 Lipid 1996 panel - Serum or Plasma Marina Morales MANAGER RECRUITING.CONVERTING SUPERVISOR Work Phone: Appendectomy Rolando Ayala Plan of Treatment Date Care Activity Detail Author Start: 11-03-2025 Lipid 1996 panel - Serum or Plasma Lipid Screening [facility] Start: 06-12-2023 Covid-19 Vaccine () Covid-19 Vaccine () [facility] Start: 06-12-2023 Influenza vaccination Influenza Vaccine (#1) [facility] Start: 10-12-2022 Depression Assessment Depression Assessment [facility] Start: 11-04-2021 Comprehensive metabolic panel METABOLIC PANEL, COMPREHENSIVE (17378) [facility] Work Phone: Start: 11-04-2021 Assay of thyroid stimulating hormone tsh TSH (29876) [facility] Work Phone: Start: 11-04-2021 Lipid panel LIPID PANEL (18614) [facility] Work Phone: Start: 11-04-2021 25 hydroxy includes fractions if performed CALCIFIDIOL (72686) VIT D 25 [facility] Work Phone: Start: 10-30-2021 Iaadiadoo influenza 2019 Novel Coronavirus (COVID-19), CARLENE (39736) [facility] Work Phone: Start: 10-30-2021 Procedure Education Eprescribed prescriptions (G8553) [facility] Work Phone: Start: 10-30-2021 Provider Instructions for Treatment Follow up in 2 days front end drupal developer to make follow up [facility] Work Phone: Start: 07-29-2021 Diabetes Screening Diabetes Screening [facility] Start: 06-26-2021 Lipid panel LIPID PANEL (70743) [facility] Work Phone: Start: 03-26-2021 Procedure Education Eprescribed prescriptions (G8553) [facility] Work Phone: Start: 03-26-2021 Provider Instructions for Treatment Follow up in 3 months [facility] Work Phone: Start: 03-06-2021 25 hydroxy includes fractions if performed CALCIFEDIOL (25143) [facility] Work Phone: Start: 03-06-2021 Assay of thyroid stimulating hormone tsh TSH (THYROID STIMULATING HORMONE) (54222) [facility]; [facility] Work Phone: Start: 03-06-2021 Blood count complete auto&auto difrntl wbc CBC, Platelets & Auto Diff (33488) [facility]; [facility] Work Phone: Start: 03-06-2021 Comprehensive metabolic panel Metabolic Panel, Comprehensive (22126) [facility]; [facility] Work Phone: Start: 03-06-2021 Lipid panel LIPID PANEL (05896) [facility] Work Phone: Start: 03-05-2021 Procedure Education Eprescribed prescriptions (G8553) [facility]; [facility] Work Phone: Start: 03-05-2021 Provider Instructions for Treatment [facility] Work Phone: Start: 01-18-2021 Assay of thyroid stimulating hormone tsh TSH (THYROID STIMULATING HORMONE) (76684) [facility] Work Phone: Start: 01-18-2021 TSH Qn TSH (THYROID STIMULATING HORMONE) (81169) [facility]; [facility] Work Phone: Start: 01-18-2021 Blood count complete automated CBC & PLATELETS (AUTO) (30610) [facility] Work Phone: Start: 01-18-2021 Comprehensive metabolic panel METABOLIC PANEL, COMPREHENSIVE (00397) [facility] Work Phone: Start: 01-18-2021 Lipid panel LIPID PANEL (77804) [facility] Work Phone: Start: 12-20-2020 Procedure Education Eprescribed prescriptions (G8553) [facility]; [facility] Work Phone: Start: 12-20-2020 Culture bct isol&prsmptv id isolate ea urine URINE YAMILE CULTURE-IDENTIFICATN (24797) [facility]; [facility] Work Phone: Start: 11-30-2020 Procedure Education Eprescribed prescriptions (G8553) [facility]; [facility] Work Phone: Start: 11-30-2020 Provider Instructions for Treatment [facility]; [facility] Work Phone: Start: 10-29-2020 Procedure Education Eprescribed prescriptions (G8553) [facility]; [facility] Work Phone: Start: 10-29-2020 Provider Instructions for Treatment Follow up after consult [facility]; [facility] Work Phone: Start: 10-29-2020 Comprehensive metabolic panel Metabolic Panel, Comprehensive (02560) [facility]; [facility] Work Phone: Start: 10-29-2020 ALP [Catalytic activity/Vol] ALKALINE PHOSPHATASE-ISOENZYM (77331) [facility]; [facility] Work Phone: Start: 10-29-2020 Assay of phosphatase alkaline isoenzymes ALKALINE PHOSPHATASE-ISOENZYM (35776) [facility]; [facility] Work Phone: Start: 10-29-2020 Iaad ia giardia Giardia Lamblia, Direct Detection EIA (78898) [facility]; [facility] Work Phone: Start: 10-29-2020 Amylase [Catalytic activity/Vol] AMYLASE (94906) [facility]; [facility] Work Phone: Start: 10-29-2020 Assay of amylase AMYLASE (32313) [facility] Work Phone: Start: 10-29-2020 Assay of lipase LIPASE (14616) [facility] Work Phone: Start: 10-29-2020 Alpha-fetoprotein serum ZCEAG-FAORHHOMUMH-CKLEL (70360) [facility]; [facility] Work Phone: Start: 10-29-2020 Hepatitis c antibody HEPATITIS C ANTIBODY (95085) [facility]; [facility] Work Phone: Start: 10-29-2020 Acute hepatitis panel HEPATITIS PANEL (30280) [facility]; [facility] Work Phone: Start: 02-13-2020 Urine microalbumin profile DTaP,Tdap,Td Vaccine (2 - Td or Tdap) [facility] Start: 2019 Cologuard (FIT-DNA) Cologuard (FIT-DNA) [facility] Start: 2019 Colonoscopy Colonoscopy [facility] Start: 2019 Colorectal Cancer Screening Colorectal Cancer Screening [facility] Start: [address] Colonography [facility] Start: 2019 Fecal Occult Blood Fecal Occult Blood [facility] Start: 2019 Sigmoidoscopy Sigmoidoscopy [facility] Start: 10-23-2018 Mammography Mammogram Screening [facility] Start: 1992 Hepatitis C Screening Hepatitis C Screening [facility] Start: 1980 Pneumococcal vaccination Pneumococcal Vaccine (1 - PCV) [facility] Start: 1974 Hepatitis B Vaccine (1 of 3 - 3-dose series) Hepatitis B Vaccine (1 of 3 - 3-dose series) [facility] Work Phone: [facility] Immunization Date Immunization Notes Care Provider Sonny pichardo 12-18-2020 COVID-19 original vaccine, age 12+ yr, monovalent (PFIZER-BIONTECH - PURPLE TOP) Marina Andrew MANAGER RECRUITING.CONVERTING SUPERVISOR Work Phone: [facility] 11-29-2020 COVID-19 original vaccine, age 12+ yr, monovalent (PFIZER-BIONTECH - PURPLE TOP) Marina Morales MANAGER RECRUITING.CONVERTING SUPERVISOR Work Phone: [facility] 03-06-2010 hepatitis B immune globulin Marina Morales MANAGER RECRUITING.CONVERTING SUPERVISOR Work Phone: [facility] 02-12-2010 tetanus toxoid, redu bunny diphtheria toxoid, and acellular pertussis vaccine, adsorbed Marina Morales MANAGER RECRUITING.CONVERTING SUPERVISOR Work Phone: [facility] Payers Date Payer Category Payer Unknown 2020 Unknown [id number] 1975 Unknown [id number] Social History Date Type Detail Facility Alcohol Use: Alcohol Use: [facility] Work Phone: Drug Use: Drug Use: [facility] Work Phone: Living Situation: [facility]; [facility] Work Phone: Tobacco Use: Tobacco Use: [facility] Work Phone: Medical Equipment Procedure Code Equipment Code Equipment Origin al Text Equipment Identifier Dates Mad-Cw-R-Kind Implant - [id number] Start: 11-20-2017 Functional Status Date Assessment Result Facility 11-03-2020 Liver fibr score SerPl Calc.FibroSure 0.3 7 [facility] Clinical Notes 03-01-2010 to 09-08-2023 Telephone Encounter - Liya Almazan PA-C - 09/08/2023 9:44 AM Marina Washington APRN.CNP - 08/16/2023 11:41 AM EST Note Date & Type Note Facility 09-08-2023 Miscellaneous Notes Received secure fax from provider Azucena Murphy CNP regarding pt US findings. Pt has not been seen since 2020. Please advise f/u GI visit to discuss thank you Liya Almazan PA-C documented in this encounter [facility] 08-16-2023 Note HNO ID: [id number] Author: Marina Morales APRN.CNP Service: ? Author Type: Nurse Practitioner Type: Progress Notes Filed: 08/16/2023 11:56 AM Note Text: This note was created using NoteWriter. Subjective Ginny Yoo is a 48 year old female. 48 year old female with PMH hyperlipidemia and osteopenia presents for illness. Acute onset last week. + non productive cough +fever +chills +fatigue +nausea +chills. Denies emesis Denies diarrhea Denies fever Has used Robitussin Has used Isabella REYES Thursday @ work negative. States she works at [employer] and endorses that 5 people have recently . +tobacco smoker The history is provided by the patient. No certified court/medical interpreter was used. Cough This is a new problem. The current episode started more than 1 week ago. The problem occurs constantly. The problem has been gradually worsening. The cough is Non-productive. The maximum temperature recorded prior to her arrival was 100 to 100.9 F. Associated symptoms include chills, ear congestion, headaches, rhinorrhea, shortness of breath and wheezing. Pertinent negatives include no chest pain, no sweats, no weight loss, no ear pain, no sore throat, no myalgias and no eye redness. She has tried decongestants for the symptoms. The treatment provided no relief. She is a smoker. Her past medical history does not include bronchitis, pneumonia, bronchiectasis, COPD, emphysema or asthma. PAST MEDICAL HISTORY Diagnosis Date Colicky RUQ abdominal pain Depression resolved Fatty liver GERD (gastroesophageal reflux disease) History of medical problems itching post sugery. states she gets benadryl pre op PONV (postoperative nausea and vomiting) Pt denies PONV;But reported getting Very itchy w/ anesthesia Symptomatic cholelithiasis PAST SURGICAL HISTORY Procedure Laterality Date ABDOMINOPLASTY N/A 2018 APPENDECTOMY 1994 BREAST AUGMENTATION W/PROSTHETIC IMPLANT Bilateral 2017 LAPAROSCOPIC CHOLECYSTECTOMY N/A 01/17/2021 LIGATE FALLOPIAN TUBE 1997 LIPOSUCTION, HIPS Bilateral 2017 LIPOSUCTION, STOMACH Bilateral 08/10/2018 Dr. Gamboa PAST SURGICAL HISTORY OF c-sectionx2 1994 and 1997 REDUCTION OF LARGE BREAST 2010 REMOVE TONSILS/ADENOIDS,<12 Y/O as a child TOTAL ABDOM HYSTERECTOMY 2006 BSO ALLERGIES Morphine and Roxybond [Oxycodone] MEDICATIONS doxycycline (VIBRA-TABS) 100 mg tablet Take 1 tablet by mouth two times a day for 10 days. predniSONE (DELTASONE) 10 mg tablet Take 4 tabs daily for 3 days, then 2 tabs daily for 3 days, then 1 tab daily for 3 days with food. FENOFIBRATE MICRONIZED 48 MG TAB three times daily. (Patient not taking: Reported on 08/16/2023) cholecalciferol, vitamin D3, (VITAMIN D3 ORAL) Take 1,000 Units by mouth once daily. (Patient not taking: Reported on 08/16/2023) cyanocobalamin, vitamin B-12, (VITAMIN B-12 ORAL) Take 1 tablet by mouth once daily. (Patient not taking: Reported on 08/16/2023) Ascorbic Acid (VITAMIN C) 1,000 mg tablet Take 1,000 mg by mouth once daily. (Patient not taking: Reported on 08/16/2023) omeprazole (PRILOSEC) 20 mg capsule TAKE 1 CAPSULE BY MOUTH ONCE DAILY. 30 MINUTES BEFORE A MEAL. FAMILY HISTORY Problem Relation Age of Onset Diabetes Mother Cancer Father pancreatic cancer Social History Tobacco Use Smoking status: Every Day Packs/day: 0.50 Years: 20.00 Additional pack years: 0.00 Total pack years: 10.00 Types: Cigarettes Last attempt to quit: 10/16/2017 Years since quittin.8 Smokeless tobacco: Never Vaping Use Vaping Use: Never used Substance Use Topics Alcohol use: Not Currently Comment: occ Drug use: No Review of Systems Constitutional: Positive for chills, fatigue and fever. Negative for weight loss. HENT: Positive for congestion, postnasal drip, rhinorrhea, sinus pressure and sinus pain. Negative for ear pain and sore throat. Eyes: Negative for pain, discharge, redness and itching. Respiratory: Positive for cough, shortness of breath and wheezing. Cardiovascular: Negative for chest pain. Gastrointestinal: Positive for nausea. Negative for abdominal pain, diarrhea and vomiting. Musculoskeletal: Negative for arthralgias, back pain, gait problem and myalgias. Skin: Negative for color change, pallor, rash and wound. Allergic/Immunologic: Negative for environmental allergies, food allergies and immunocompromised state. Neurological: Positive for headaches. Hematological: Negative for adenopathy. Does not bruise/bleed easily. Psychiatric/Behavioral: Negative for agitation and behavioral problems. Objective LMP 08/11/2007 LMP 08/11/2007 Physical Exam Vitals and nursing note reviewed. Constitutional: General: She is not in acute distress. Appearance: Normal appearance. She is normal weight. She is not ill-appearing, toxic-appearing or diaphoretic. HENT: Head: Normocephalic and atraumatic. Right Ear: (more content not included)... [facility] 08-16-2023 History of Present illness Narrative This note was created using [employer]-cube [employer]. Subjective Ginny Yoo is a 48 year old female. 48 year old female with PMH hyperlipidemia and osteopenia presents for illness. Acute onset last week. + non productive cough +fever +chills +fatigue +nausea +chills. Denies emesis Denies diarrhea Denies fever Has used Robitussin Has used Isabella Suzyter COVID Thursday @ work negative. States she works at [email or web address] and endorses that 5 people have recently . +tobacco smoker The history is provided by the patient. No certified court/medical interpreter was used. Cough This is a new problem. The current episode started more than 1 week ago. The problem occurs constantly. The problem has been gradually worsening. The cough is Non-productive. The maximum temperature recorded prior to her arrival was 100 to 100.9 F. Associated symptoms include chills, ear congestion, headaches, rhinorrhea, shortness of breath and wheezing. Pertinent negatives include no chest pain, no sweats, no weight loss, no ear pain, no sore throat, no myalgias and no eye redness. She has tried decongestants for the symptoms. The treatment provided no relief. She is a smoker. Her past medical history does not include bronchitis, pneumonia, bronchiectasis, COPD, emphysema or asthma. PAST MEDICAL HISTORY Diagnosis Date Colicky RUQ abdominal pain Depression resolved Fatty liver GERD (gastroesophageal reflux disease) History of medical problems itching post sugery. states she gets benadryl pre op PONV (postoperative nausea and vomiting) Pt denies PONV;But reported getting Very itchy w/ anesthesia Symptomatic cholelithiasis PAST SURGICAL HISTORY Procedure Laterality Date ABDOMINOPLASTY N/A 2017 APPENDECTOMY 1994 BREAST AUGMENTATION W/PROSTHETIC IMPLANT Bilateral 2017 LAPAROSCOPIC CHOLECYSTECTOMY N/A 01/17/2021 LIGATE FALLOPIAN TUBE 1997 LIPOSUCTION, HIPS Bilateral 2018 LIPOSUCTION, STOMACH Bilateral 08/10/2018 Dr. Gamboa PAST SURGICAL HISTORY OF c-sectionx2 1994 and 1997 REDUCTION OF LARGE BREAST 2010 REMOVE TONSILS/ADENOIDS,<12 Y/O as a child TOTAL ABDOM HYSTERECTOMY 2006 BSO ALLERGIES Morphine and Roxybond [Oxycodone] MEDICATIONS doxycycline (VIBRA-TABS) 100 mg tablet Take 1 tablet by mouth two times a day for 10 days. predniSONE (DELTASONE) 10 mg tablet Take 4 tabs daily for 3 days, then 2 tabs daily for 3 days, then 1 tab daily for 3 days with food. FENOFIBRATE MICRONIZED 48 MG TAB three times daily. (Patient not taking: Reported on 08/16/2023) cholecalciferol, vitamin D3, (VITAMIN D3 ORAL) Take 1,000 Units by mouth once daily. (Patient not taking: Reported on 08/16/2023) cyanocobalamin, vitamin B-12, (VITAMIN B-12 ORAL) Take 1 tablet by mouth once daily. (Patient not taking: Reported on 08/16/2023) Ascorbic Acid (VITAMIN C) 1,000 mg tablet Take 1,000 mg by mouth once daily. (Patient not taking: Reported on 08/16/2023) omeprazole (PRILOSEC) 20 mg capsule TAKE 1 CAPSULE BY MOUTH ONCE DAILY. 30 MINUTES BEFORE A MEAL. FAMILY HISTORY Problem Relation Age of Onset Diabetes Mother Cancer Father pancreatic cancer Social History Tobacco Use Smoking status: Every Day Packs/day: 0.50 Years: 20.00 Additional pack years: 0.00 Total pack years: 10.00 Types: Cigarettes Last attempt to quit: 10/16/2017 Years since quittin.8 Smokeless tobacco: Never Vaping Use Vaping Use: Never used Substance Use Topics Alcohol use: Not Currently Comment: occ Drug use: No Review of Systems Constitutional: Positive for chills, fatigue and fever. Negative for weight loss. HENT: Positive for congestion, postnasal drip, rhinorrhea, sinus pressure and sinus pain. Negative for ear pain and sore throat. Eyes: Negative for pain, discharge, redness and itching. Respiratory: Positive for cough, shortness of breath and wheezing. Cardiovascular: Negative for chest pain. Gastrointestinal: Positive for nausea. Negative for abdominal pain, diarrhea and vomiting. Musculoskeletal: Negative for arthralgias, back pain, gait problem and myalgias. Skin: Negative for color change, pallor, rash and wound. Allergic/Immunologic: Negative for environmental allergies, food allergies and immunocompromised state. Neurological: Positive for headaches. Hematological: Negative for adenopathy. Does not bruise/bleed easily. Psychiatric/Behavioral: Negative for agitation and behavioral problems. Objective LMP 08/11/2007 LMP 08/11/2007 Physical Exam Vitals and nursing note reviewed. Constitutional: General: She is not in acute distress. Appearance: Normal appearance. She is normal weight. She is not ill-appearing, toxic-appearing or diaphoretic. HENT: Head: Normocephalic and atraumatic. Right Ear: Ear canal and external ear normal. Left Ear: Ear canal and external ear normal. Nose: Congestion present. No rhinorrhea. Mouth/Throat: Mouth: Mucous membranes are moist. Pharynx: Posterior oropharyngeal erythema present. No oropharyngeal exudate. Eyes: General: Right eye: No discharge. Left eye: No discharge. Extraocular Movements: Extraocular movements intact. Conjunctiva/sclera: Conjunctivae normal. Pupils: Pupils are equal, round, and reactive to light. Cardiovascular: Rate and Rhythm: Normal rate and regular rhythm. Pulses: Normal pulses. Heart sounds: Normal heart sounds. No murmur heard. No friction rub. Pulmonary: Effort: Pulmonary effort is normal. No respiratory distress. Breath sounds: No stridor. Wheezing and rhonchi present. No rales. Comments: Diffuse rhonchi and wheezes that clears with coughing. Chest rises and falls equally No flail chest Chest: Chest wall: No tenderness. Abdominal: General: Abdomen is flat. There is no distension. Palpations: Abdomen is soft. There is no mass. Tenderness: There is no abdominal tenderness. There is no right CVA tenderness, left CVA tenderness, guarding or rebound. Hernia: No hernia is present. Musculoskeletal: General: No swelling, tenderness, deformity or signs of injury. Normal range of motion. Cervical back: Normal range of motion and neck supple. No rigidity. Right lower leg: No edema. Left lower leg: No edema. Lymphadenopathy: Cervical: Cervical adenopathy present. Skin: General: Skin is warm and dry. Coloration: Skin is not jaundiced or pale. Findings: No bruising, erythema, lesion or rash. Neurological: General: No focal deficit present. Mental Status: She is alert and oriented to person, place, and time. Cranial Nerves: No cranial nerve deficit. Sensory: No sensory deficit. Motor: No weakness. Coordination: Coordination normal. Gait: Gait normal. Psychiatric: Mood and Affect: Mood normal. Behavior: Behavior normal. Thought Content: Thought content normal. Judgment: Judgment normal. Assessment and Plan ASSESSMENT/PLAN: 1. Acute cough - ICD9: 786.2, ICD10: R05.1 (primary diagnosis) X one week Diffuse rhonchi and wheezes posterior bases No xray available at time of exam RX Doxycyline to cover possible pneumonia RX Prednisone taper History of tobacco usage 2. URI, acute - ICD9: 465.9, ICD10: J06.9 - Symptomatic treatment with prn analgesia - Supportive care with fluids and rest - The patient may also use OTC cough and cold meds as needed, warm salt water gargles, throat lozenges and/or OTC throat spray as needed, and nasal saline gtts and suction prn. - Follow up in 3-5 days if symptoms persist or sooner if worsening of symptoms Marina Morales APRN.CONVERTING SUPERVISOR documented in this encounter [facility] 02-12-2021 Note HNO ID: [id number] Author: Ben Rivera MD Service: ? Author Type: Physician Type: Progress Notes Filed: 02/12/2021 11:06 AM Note Text: Ginny Yoo is a 45 year old female who is here for her first post-op visit. She is status post laparoscopic cholecystectomy and liver biopsy. She is doing well. Her preoperative symptoms have resolved. She does report some soreness by the umbilicus still however we had to enlarge and that incision to remove her gallbladder and I suspect that is why she still has discomfort there. She does have some mild wound separation. Otherwise, she is doing quite well. Operative findings reviewed with in detail as was the pathology report. Pathology was consistent with chronic cholecystitis and cholelithiasis. Liver biopsy showed mild macrovesicular steatosis. Her LFTs prior to surgery were normal. Before that they were mildly elevated which I suspect from her gallstones and biliary disease. ALLERGIES Allergen Reactions - Morphine Rash - Roxybond [Oxycodone] Mental Status Change Current Outpatient Medications Medication Sig - FENOFIBRATE MICRONIZED 48 MG TAB three times daily. - cholecalciferol, vitamin D3, (VITAMIN D3 ORAL) Take 1,000 Units by mouth once daily. - cyanocobalamin, vitamin B-12, (VITAMIN B-12 ORAL) Take 1 tablet by mouth once daily. - Ascorbic Acid (VITAMIN C) 1,000 mg tablet Take 1,000 mg by mouth once daily. - omeprazole (PRILOSEC) 20 mg capsule TAKE 1 CAPSULE BY MOUTH ONCE DAILY. 30 MINUTES BEFORE A MEAL. No current facility-administered medications for this visit. PHYSICAL EXAM: BP 117/68 Pulse 70 Resp 19 Ht 5' 7 (1.70m) Wt 180 lb (81.6kg) LMP 08/11/2007 BMI 28.19 kg/(m2). General Appearance: Well appearing, alert, in no acute distress, well-hydrated, well nourished.. Eyes: Anicteric sclera. Pupils are equally round and reactive to light. Extraocular movements are intact. Abdomen: Soft and nontender. Incisions healing well. At the umbilical incision there is several millimeter minor separation with a little exudate. No signs of an infection or an abscess. Op AND Path findings reviewed with patient / family and all questions were answered. Assessment: Calculus of gallbladder with chronic cholecystitis without obstruction (primary encounter diagnosis) Plan: ASSESSMENT/PLAN: 1. Calculus of gallbladder with chronic cholecystitis without obstruction - ICD9: 574.10, ICD10: K80.10 Status post laparoscopic cholecystectomy and liver biopsy. Overall doing well. Activity instructions reviewed. Wound care instructions given. Follow-up as needed. Ben Rivera M.D., F.A.C.S. [facility] 01-17-2021 Note HNO ID: [id number] Author: Chloe (Rn) JOURDAN Dai Service: ? Author Type: Registered Nurse Type: Nursing Progress Note Filed: 01/18/2021 9:07 PM Note Text: PACU nurse audit. [facility] 01-17-2021 Note HNO ID: [id number] Author: Brandon Joy Crna) Maia Service: Anesthesiology Author Type: Nurse Director Process Type: Anesthesia Procedure Notes Filed: 01/17/2021 11:53 AM Note Text: ANESTHESIOLOGY PROCEDURE NOTE Airway General Information Procedure Start Time/Medication Administration: 01/17/2021 11:40 AM Patient location during procedure: OR Timeout Performed Pre-procedure: timeout performed Consent Obtained: Yes Patient identity confirmed: arm band Staffing TITLE CURATOR: Brandon Joy Crna) Maia Indications and Patient Condition Preoxygenated: yes Patient position: sniffing Indications for airway management: anesthesia anesthesia circuit Method: asleep Cricoid Pressure: Yes Final Airway Details Final airway type: endotracheal airway Final Endotracheal Airway: ETT Cuffed: yes Successful intubation technique: direct laryngoscopy Devices used: intubating stylet Endotracheal tube insertion site: oral Blade: Alba Blade size: #4 ETT size (mm): 7.0 Measured from: lips Measurement (cm): 22 Placement verified by: chest auscultation and capnometry Cormack-Lehane Classification: grade I - full view of glottis Number of attempts at approach: 1 SIGNATURE: Brandon Carvalho APRN.TITLE CURATOR PATIENT NAME: Ginny Yoo DATE: January 17, 2021 TIME: 11:52 AM CSN: [id number] [facility] 11-26-2020 Note HNO ID: [id number] Author: Leo Maxwell (Rt) Service: Radiology Author Type: Upset Operator Type: Progress Notes Filed: 11/26/2020 3:43 PM Note Text: Radiology Service Progress Note DATE OF SERVICE: November 26, 2020 TIME: 3:42 PM PATIENT IDENTITY VERIFICATION COMPLETED USING TWO (2) STANDARD IDENTIFIERS: Name and Date of confirmed by patient verbally. FALL SCREENING: Has the patient had 2 falls in the last year or 1 fall with injury or currently using an Ambulatory Assistive Device (Walker, Cane, Wheelchair, Crutches, etc.)? No PATIENT GENDER DATA: Female. status: : No status: NO. PATIENT RELEVANT IMPLANT DATA REVIEWED: Not Applicable ALLERGIES: Reviewed and unchanged CONTRAST ALLERGY: NO. EXAM: MRI - CONTRAST TYPE: GROUP I OR GROUP III RISK FACTORS: N/A CREATININE: Creatinine Date Value Ref Range Status 07/29/2018 0.68 0.58 - 0.96 mg/dL Final 11/05/2017 0.78 0.58 - 0.96 mg/dL Final eGFR-All Other Races Date Value Ref Range Status 07/29/2018 >60 . Final Comment: eGFR (Estimated GFR) Units of measure: mL/min/1.73 meters squared eGFR is derived from the reexpressed MDRD Study equation using the following parameters: serum creatinine, age, gender and race. The creatinine assay has been calibrated to be traceable to IDMS. An eGFR <60 mL/min/1.73m2 for >3 months is consistent with chronic kidney disease. Refer to KDOQI guidelines for clinical interpretation. In patients with unstable renal function, e.g. those with acute kidney injury, the eGFR may not accurately reflect actual GFR. eGFR- Date Value Ref Range Status 07/29/2018 >60 Final P.O.C.T. RESULTS: N/A November 26, 2020 TREATMENT: N/A PERIPHERAL IV DATA: Ambulatory: A peripheral IV was started in the Left antecubital site with a Angio cath: 22 gauge. RADIOLOGY DEPARTMENT: MR; Exam(s) Completed: Body: spleen SIGNATURE: RT Hans PATIENT NAME: Ginny Yoo DATE: November 26, 2020 TIME: 3:42 PM [facility] 11-13-2020 Note HNO ID: [id number] Author: Ben Rivera Service: ? Author Type: Physician Type: Progress Notes Filed: 11/13/2020 10:28 AM Note Text: Ginny Yoo is a 45 year old White female who presents with complaints of right upper quadrant pain. She has had this pain several times. Last time she had it it occurred after eating steak with butter garlic. This was about 2 weeks ago. She also had some nausea and emesis. She had a CT scan which showed a splenic lesion. She is getting an MRI in a few weeks to evaluate this lesion. She also had an ultrasound which revealed cholelithiasis and the splenic lesion again. She denies any pain in the left upper quadrant. She was also seen for abnormal liver function test by her eeo officer who ordered multiple labs and was considering a liver biopsy. She does smoke half a pack of cigarettes a day and is attempting to quit. PAST MEDICAL HISTORY Diagnosis Date - Fatty liver - Hepatitis PAST SURGICAL HISTORY Procedure Laterality Date - ABDOMINOPLASTY N/A - APPENDECTOMY - BREAST AUGMENTATION W/PROSTHETIC IMPLANT Bilateral - LIGATE FALLOPIAN TUBE - LIPOSUCTION, HIPS Bilateral - LIPOSUCTION, STOMACH Bilateral 08/10/2018 Dr. Gamboa - PAST SURGICAL HISTORY OF c-sectionx2 - REDUCTION OF LARGE BREAST 2010 - REMOVE TONSILS/ADENOIDS,<12 Y/O - TOTAL ABDOM HYSTERECTOMY 2006 BSO Social History Tobacco Use - Smoking status: Current Every Day Smoker Packs/day: 0.50 Years: 20.00 Pack years: 10.00 Types: Cigarettes Last attempt to quit: 10/16/2017 Years since quittin.0 - Smokeless tobacco: Never Used Substance Use Topics - Alcohol use: Not Currently Comment: occ - Drug use: No FAMILY HISTORY Problem Relation Age of Onset - Diabetes Mother - Cancer Father pancreatic cancer ALLERGIES Allergen Reactions - Morphine Rash Current Outpatient Medications Medication Sig - omeprazole (PRILOSEC) 20 mg capsule Take 1 capsule by mouth once daily. 30 minutes before a meal. - DULoxetine (CYMBALTA) 30 mg capsule Take 1 capsule by mouth once daily. No current facility-administered medications for this visit. REVIEW OF SYSTEMS PAIN ASSESSMENT: Negative for pain, history of chronic pain, or current treatment for a chronic pain condition. GENERAL: No weight loss, malaise or fevers NECK: Negative for lumps, goiter, pain and significant neck swelling RESPIRATORY: Negative for cough, hemoptysis, wheezing, COPD, dyspnea or shortness of breath CARDIOVASCULAR: Negative for chest pain, leg swelling, hypertension, CHF or palpitations GI: See HPI : No history of dysuria, frequency or incontinence MUSCULOSKELETAL: Negative for joint pain or swelling, back pain or muscle pain HEMATOLOGY/LYMPHOLOGY: Negative for prolonged bleeding, bruising easily or swollen nodes ENDOCRINE: Negative for cold or heat intolerance, polyuria, polydipsia and goiter PHYSICAL EXAM: BP 134/71 Pulse 77 Resp 18 Ht 5' 7 (1.70m) Wt 170 lb (77.1kg) LMP 08/11/2007 BMI 26.62 kg/(m2). General Appearance: Well appearing, alert, in no acute distress, well-hydrated, well nourished.. Eyes: Normal sclera Skin: Skin texture and turgor normal, no suspicious rashes or lesions, Negative for jaundice or pallor. Neck: Supple, trachea midline Lungs: Lungs clear to auscultation. No wheezing, rhonchi, rales.. Heart: RRR without murmur, gallop, or rubs. No ectopy. Abdomen: Normal abdominal exam, Abdomen soft, non-tender. Bowel sounds normal. No masses, organomegaly, Negative CVA tenderness, Positive findings: tenderness moderate RUQ. Musculoskeletal: Negative. Lymph Nodes: No cervical lymphadenopathy and No supraclavicular lymphadenopathy. Assessment: Colicky ruq abdominal pain (primary encounter diagnosis) Symptomatic cholelithiasis Elevated lfts Plan: ASSESSMENT/PLAN: 1. Colicky RUQ abdominal pain - ICD9: 789.01, ICD10: R10.11 (primary diagnosis) -See below 2. Symptomatic cholelithiasis - ICD9: 574.20, ICD10: K80.20 I do believe she would benefit from a laparoscopic cholecystectomy. The procedure was reviewed in detail including the risks, benefits and complications inherent to the procedure. These include, but are not limited to, bleeding, infection, other organ injury, bile leak, bile duct injury necessitating further surgery. The patient understood and was agreeable to proceed. We will wait the final results of the MRI to evaluate the splenic lesion. This is to determine if we did do anything surgically for that as well. 3. Elevated LFTs - ICD9: 790.6, ICD10: R79.89 We will proceed with a liver biopsy at the time of laparoscopic cholecystectomy as well. I spent a total of 30 minutes on the date of the service which included preparing to see the patient, [id number] patient care, completing clinical documentation, obtaining and/or reviewing separately obtained history, performing a medically ap (more content not included)... [facility] documented as of this encounter (statuses as of 08/17/2023) [facility]05-21-2010 History of Past illness Narrative* Problem Noted Date Diagnosed Date Resolved Date Elevated liver enzymes 03/01/201011/05 documented as of this encounter (statuses as of 09/08/2023) [facility] Acute cough- Primary URI, acute Acute upper respiratory infections of unspecified site [facility] Name Dates Details Patient Instructions Indication:Smoker Start:20-Dec-2020 Instruction Type:Provider Instructions for Treatment How to Access Health Informa tion Online using Patient Portal and 3rd Libertarian Apps Indication:Smoker Start:20-Dec-2020 Instruction Type:Patient Education Patient Instructions Indication:Elevated liver enzymes Start:30-Nov-2020 Instruction Type:Provider Instructions for Treatment How to Access Health Informa tion Online using Patient Portal and 3rd Libertarian Apps Indication:Smoker Start:30-Nov-2020 Instruction Type:Patient Education Patient Instructions Indication:Smoker Start:29-Oct-2020 Instruction Type:Provider Instructions for Treatment How to Access Health Informa tion Online using Patient Portal and 3rd Libertarian Apps Indication:Smoker Start:29-Oct-2020 Instruction Type:Patient Education [facility]; [facility] Work Phone: instructions* Name Dates Details Patient Instructions Indication:BMI 27.0-27.9,adult Start:05-Mar-2021 Instruction Type:Provider Instructions for Treatment How to Access Health Informa tion Online using Patient Portal and 3rd Libertarian Apps Indication:BMI 27.0-27.9,adult Start:05-Mar-2021 Instruction Type:Patient Education Patient Instructions Indication:Smoker Start:20-Dec-2020 Instruction Type:Provider Instructions for Treatment How to Access Health Informa tion Online using Patient Portal and 3rd Libertarian Apps Indication:Smoker Start:20-Dec-2020 Instruction Type:Patient Education Patient Instructions Indication:Elevated liver enzymes Start:30-Nov-2020 Instruction Type:Provider Instructions for Treatment How to Access Health Informa tion Online using Patient Portal and 3rd Libertarian Apps Indication:Smoker Start:30-Nov-2020 Instruction Type:Patient Education Patient Instructions Indication:Smoker Start:29-Oct-2020 Instruction Type:Provider Instructions for Treatment How to Access Health Informa tion Online using Patient Portal and 3rd Libert[employer] Apps Indication:Smoker Start:29-Oct-2020 Instruction Type:Patient Education [facility]; [facility] Work Phone: instructions* Name Dates Details Patient Instructions Indication:BMI 27.0-27.9,adult Start:05-Mar-2021 Instruction Type:Provider Instructions for Treatment How to Access Health Informa tion Online using Patient Portal and 3rd [employer] Apps Indication:BMI 27.0-27.9,adult Start:05-Mar-2021 Instruction Type:Patient Education Patient Instructions Indication:Smoker Start:20-Dec-2020 Instruction Type:Provider Instructions for Treatment How to Access Health Informa tion Online using Patient Portal and 3rd [employer] Apps Indication:Smoker Start:20-Dec-2020 Instruction Type:Patient Education Patient Instructions Indication:Elevated liver enzymes Start:30-Nov-2020 Instruction Type:Provider Instructions for Treatment How to Access Health Informa tion Online using Patient Portal and 3rd [employer] Apps Indication:Smoker Start:30-Nov-2020 Instruction Type:Patient Education Patient Instructions Indication:Smoker Start:29-Oct-2020 Instruction Type:Provider Instructions for Treatment How to Access Health Informa tion Online using Patient Portal and 3rd [employer] Apps Indication:Smoker Start:29-Oct-2020 Instruction Type:Patient Education [facility]; [facility] Work Phone: instructions* Name Dates Details Patient Instructions Indication:BMI 27.0-27.9,adult Start:05-Mar-2021 Instruction Type:Provider Instructions for Treatment How to Access Health Informa tion Online using Patient Portal and [employer] Indication:BMI 27.0-27.9,adult Start:05-Mar-2021 Instruction Type:Patient Education Patient Instructions Indication:Smoker Start:20-Dec-2020 Instruction Type:Provider Instructions for Treatment How to Access Health Informa tion Online using Patient Portal and [employer]rd [employer] Apps Indication:Smoker Start:20-Dec-2020 Instruction Type:Patient Education Patient Instructions Indication:Elevated liver enzymes Start:30-Nov-2020 Instruction Type:Provider Instructions for Treatment How to Access Health Informa tion Online using Patient Portal and [employer]rd [employer] Apps Indication:Smoker Start:30-Nov-2020 Instruction Type:Patient Education Patient Instructions Indication:Smoker Start:29-Oct-2020 Instruction Type:Provider Instructions for Treatment How to Access Health Informa tion Online using Patient Portal and [employer]rd [employer] Apps Indication:Smoker Start:29-Oct-2020 Instruction Type:Patient Education [facility] Work Phone: instructions* Name Dates Details Patient Instructions Indication:Smoker Start:26-Mar-2021 Instruction Type:Provider Instructions for Treatment How to Access Health Informa tion Online using Patient Portal and [employer]rd [employer] Apps Indication:Smoker Start:26-Mar-2021 Instruction Type:Patient Education Patient Instructions Indication:BMI 27.0-27.9,adult Start:05-Mar-2021 Instruction Type:Provider Instructions for Treatment How to Access Health Informa tion Online using Patient Portal and [employer]rd [employer] Apps Indication:BMI 27.0-27.9,adult Start:05-Mar-2021 Instruction Type:Patient Education Patient Instructions Indication:Smoker Start:20-Dec-2020 Instruction Type:Provider Instructions for Treatment How to Access Health Informa tion Online using Patient Portal and [employer] Indication:Smoker Start:20-Dec-2020 Instruction Type:Patient Education Patient Instructions Indication:Elevated liver enzymes Start:30-Nov-2020 Instruction Type:Provider Instructions for Treatment How to Access Health Informa tion Online using Patient Portal and [employer] Apps Indication:Smoker Start:30-Nov-2020 Instruction Type:Patient Education Patient Instructions Indication:Smoker Start:29-Oct-2020 Instruction Type:Provider Instructions for Treatment How to Access Health Informa tion Online using Patient Portal and [employer]rd [employer] Apps Indication:Smoker Start:29-Oct-2020 Instruction Type:Patient Education [facility]; [facility] Work Phone: instructions* Name Dates Details Patient Instructions Indication:Smoker Start:26-Mar-2021 Instruction Type:Provider Instructions for Treatment How to Access Health Informa tion Online using Patient Portal and [employer] Apps Indication:Smoker Start:26-Mar-2021 Instruction Type:Patient Education Patient Instructions Indication:BMI 27.0-27.9,adult Start:05-Mar-2021 Instruction Type:Provider Instructions for Treatment How to Access Health Informa tion Online using Patient Portal and [employer] Apps Indication:BMI 27.0-27.9,adult Start:05-Mar-2021 Instruction Type:Patient Education Patient Instructions Indication:Smoker Start:20-Dec-2020 Instruction Type:Provider Instructions for Treatment How to Access Health Informa tion Online using Patient Portal and [employer] Apps Indication:Smoker Start:20-Dec-2020 Instruction Type:Patient Education Patient Instructions Indication:Elevated liver enzymes Start:30-Nov-2020 Instruction Type:Provider Instructions for Treatment How to Access Health Informa tion Online using Patient Portal and [employer] Apps Indication:Smoker Start:30-Nov-2020 Instruction Type:Patient Education Patient Instructions Indication:Smoker Start:29-Oct-2020 Instruction Type:Provider Instructions for Treatment How to Access Health Informa tion Online using Patient Portal and [employer] Apps Indication:Smoker Start:29-Oct-2020 Instruction Type:Patient Education [facility]; [facility] Work Phone: instructions* Name Dates Details Patient Instructions Indication:Smoker Start:26-Mar-2021 Instruction Type:Provider Instructions for Treatment How to Access Health Informa tion Online using Patient Portal and [employer] Apps Indication:Smoker Start:26-Mar-2021 Instruction Type:Patient Education Patient Instructions Indication:BMI 27.0-27.9,adult Start:05-Mar-2021 Instruction Type:Provider Instructions for Treatment How to Access Health Informa tion Online using Patient Portal and [employer] Apps Indication:BMI 27.0-27.9,adult Start:05-Mar-2021 Instruction Type:Patient Education Patient Instructions Indication:Smoker Start:20-Dec-2020 Instruction Type:Provider Instructions for Treatment How to Access Health Informa tion Online using Patient Portal and [employer] Apps Indication:Smoker Start:20-Dec-2020 Instruction Type:Patient Education Patient Instructions Indication:Elevated liver enzymes Start:30-Nov-2020 Instruction Type:Provider Instructions for Treatment How to Access Health Informa tion Online using Patient Portal and [employer] Apps Indication:Smoker Start:30-Nov-2020 Instruction Type:Patient Education Patient Instructions Indication:Smoker Start:29-Oct-2020 Instruction Type:Provider Instructions for Treatment How to Access Health Informa tion Online using Patient Portal and [employer] Apps Indication:Smoker Start:29-Oct-2020 Instruction Type:Patient Education [facility]; [facility] Work Phone: Instructions* Name Dates Details Patient Instructions Indication:Smoker Start:26-Mar-2021 Instruction Type:Provider Instructions for Treatment How to Access Health Informa tion Online using Patient Portal and [employer] Apps Indication:Smoker Start:26-Mar-2021 Instruction Type:Patient Education Patient Instructions Indication:BMI 27.0-27.9,adult Start:05-Mar-2021 Instruction Type:Provider Instructions for Treatment How to Access Health Informa tion Online using Patient Portal and [employer] Apps Indication:BMI 27.0-27.9,adult Start:05-Mar-2021 Instruction Type:Patient Education Patient Instructions Indication:Smoker Start:20-Dec-2020 Instruction Type:Provider Instructions for Treatment How to Access Health Informa tion Online using Patient Portal and [employer] Apps Indication:Smoker Start:20-Dec-2020 Instruction Type:Patient Education Patient Instructions Indication:Elevated liver enzymes Start:30-Nov-2020 Instruction Type:Provider Instructions for Treatment How to Access Health Informa tion Online using Patient Portal and [employer] Apps Indication:Smoker Start:30-Nov-2020 Instruction Type:Patient Education Patient Instructions Indication:Smoker Start:29-Oct-2020 Instruction Type:Provider Instructions for Treatment How to Access Health Informa tion Online using Patient Portal and [employer] Apps Indication:Smoker Start:29-Oct-2020 Instruction Type:Patient Education [facility]; [facility] Work Phone: instructions* Name Dates Details Patient Instructions Indication:Smoker Start:26-Mar-2021 Instruction Type:Provider Instructions for Treatment How to Access Health Informa tion Online using Patient Portal and [employer] Apps Indication:Smoker Start:26-Mar-2021 Instruction Type:Patient Education Patient Instructions Indication:BMI 27.0-27.9,adult Start:05-Mar-2021 Instruction Type:Provider Instructions for Treatment How to Access Health Informa tion Online using Patient Portal and [employer] Apps Indication:BMI 27.0-27.9,adult Start:05-Mar-2021 Instruction Type:Patient Education Patient Instructions Indication:Smoker Start:20-Dec-2020 Instruction Type:Provider Instructions for Treatment How to Access Health Informa tion Online using Patient Portal and [employer] Apps Indication:Smoker Start:20-Dec-2020 Instruction Type:Patient Education Patient Instructions Indication:Elevated liver enzymes Start:30-Nov-2020 Instruction Type:Provider Instructions for Treatment How to Access Health Informa tion Online using Patient Portal and [employer] Apps Indication:Smoker Start:30-Nov-2020 Instruction Type:Patient Education Patient Instructions Indication:Smoker Start:29-Oct-2020 Instruction Type:Provider Instructions for Treatment How to Access Health Informa tion Online using Patient Portal and [employer] Apps Indication:Smoker Start:29-Oct-2020 Instruction Type:Patient Education [facility]; [facility] Work Phone: Instructions* Name Dates Details Patient Instructions Indication:BMI 27.0-27.9,adult Start:30-Oct-2021 Instruction Type:Provider Instructions for Treatment How to Access Health Informa tion Online using Patient Portal and [employer] Apps Indication:BMI 27.0-27.9,adult Start:30-Oct-2021 Instruction Type:Patient Education Patient Instructions Indication:Smoker Start:26-Mar-2021 Instruction Type:Provider Instructions for Treatment How to Access Health Informa tion Online using Patient Portal and [employer] Apps Indication:Smoker Start:26-Mar-2021 Instruction Type:Patient Education Patient Instructions Indication:BMI 27.0-27.9,adult Start:05-Mar-2021 Instruction Type:Provider Instructions for Treatment How to Access Health Informa tion Online using Patient Portal and [employer] Apps Indication:BMI 27.0-27.9,adult Start:05-Mar-2021 Instruction Type:Patient Education Patient Instructions Indication:Smoker Start:20-Dec-2020 Instruction Type:Provider Instructions for Treatment How to Access Health Informa tion Online using Patient Portal and [employer] Apps Indication:Smoker Start:20-Dec-2020 Instruction Type:Patient Education Patient Instructions Indication:Elevated liver enzymes Start:30-Nov-2020 Instruction Type:Provider Instructions for Treatment How to Access Health Informa tion Online using Patient Portal and [employer] Apps Indication:Smoker Start:30-Nov-2020 Instruction Type:Patient Education Patient Instructions Indication:Smoker Start:29-Oct-2020 Instruction Type:Provider Instructions for Treatment How to Access Health Informa tion Online using Patient Portal and [employer] Apps Indication:Smoker Start:29-Oct-2020 Instruction Type:Patient Education [facility]; [facility] Work Phone: Instructions* Name Dates Details Patient Instructions Indication:BMI 27.0-27.9,adult Start:30-Oct-2021 Instruction Type:Provider Instructions for Treatment How to Access Health Informa tion Online using Patient Portal and [employer]rd [employer] Apps Indication:BMI 27.0-27.9,adult Start:30-Oct-2021 Instruction Type:Patient Education Patient Instructions Indication:Smoker Start:26-Mar-2021 Instruction Type:Provider Instructions for Treatment How to Access Health Informa tion Online using Patient Portal and [employer] Apps Indication:Smoker Start:26-Mar-2021 Instruction Type:Patient Education Patient Instructions Indication:BMI 27.0-27.9,adult Start:05-Mar-2021 Instruction Type:Provider Instructions for Treatment How to Access Health Informa tion Online using Patient Portal and [employer] Apps Indication:BMI 27.0-27.9,adult Start:05-Mar-2021 Instruction Type:Patient Education Patient Instructions Indication:Smoker Start:20-Dec-2020 Instruction Type:Provider Instructions for Treatment How to Access Health Informa tion Online using Patient Portal and [employer] Apps Indication:Smoker Start:20-Dec-2020 Instruction Type:Patient Education Patient Instructions Indication:Elevated liver enzymes Start:30-Nov-2020 Instruction Type:Provider Instructions for Treatment How to Access Health Informa tion Online using Patient Portal and [employer] Apps Indication:Smoker Start:30-Nov-2020 Instruction Type:Patient Education Patient Instructions Indication:Smoker Start:29-Oct-2020 Instruction Type:Provider Instructions for Treatment How to Access Health Informa tion Online using Patient Portal and 3rd [employer] Apps Indication:Smoker Start:29-Oct-2020 Instruction Type:Patient Education [facility]; [facility] Work Phone: Summary Purpose Family History No Family History Records FoundUnknown Family Member Name Dates Details Diabetes Status:Active Pancreatic Cancer Status:Active Stroke Status:Active Unknown Family Member Name Dates Details Diabetes Status:Active Pancreatic Cancer Status:Active Stroke Status:Active Unknown Family Member Name Dates Details Diabetes Status:Active Pancreatic Cancer Status:Active Stroke Status:Active Unknown Family Member Name Dates Details Diabetes Status:Active Pancreatic Cancer Status:Active Stroke Status:Active Unknown Family Member Name Dates Details Diabetes Status:Active Pancreatic Cancer Status:Active Stroke Status:Active Unknown Family Member Name Dates Details Diabetes Status:Active Pancreatic Cancer Status:Active Stroke Status:Active Unknown Family Member Name Dates Details Diabetes Status:Active Pancreatic Cancer Status:Active Stroke Status:Active Unknown Family Member Name Dates Details Diabetes Status:Active Pancreatic Cancer Status:Active Stroke Status:Active Unknown Family Member Name Dates Details Diabetes Status:Active Pancreatic Cancer Status:Active Stroke Status:Active Unknown Family Member Name Dates Details Diabetes Status:Active Pancreatic Cancer Status:Active Stroke Status:Active Unknown Family Member Name Dates Details Diabetes Status:Active Pancreatic Cancer Status:Active Stroke Status:Active Unknown Family Member Name Dates Details Diabetes Status:Active Pancreatic Cancer Status:Active Stroke Status:Active Unknown Family Member Name Dates Details Diabetes Status:Active Pancreatic Cancer Status:Active Stroke Status:Active Unknown Family Member Name Dates Details Diabetes Status:Active Pancreatic Cancer Status:Active Stroke Status:Active Advance Directives No Advanced Directives Records FoundNo Advanced Directives Records FoundNo Advanced Directives Records FoundNo Advanced Directives Records FoundNo Advanced Directives Records FoundNo Advanced Directives Records Found Instructions Name Dates Details Patient Instructions Indication:Elevated liver enzymes Start:30-Nov-2020 Instruction Type:Provider Instructions for Treatment How to Access Health Informa tion Online using Patient Portal and [employer]rd [employer] Apps Indication:Smoker Start:30-Nov-2020 Instruction Type:Patient Education Patient Instructions Indication:Smoker Start:29-Oct-2020 Instruction Type:Provider Instructions for Treatment How to Access Health Informa tion Online using Patient Portal and [employer] Apps Indication:Smoker Start:29-Oct-2020 Instruction Type:Patient Education Name Dates Details Patient Instructions Indication:Smoker Start:20-Dec-2020 Instruction Type:Provider Instructions for Treatment How to Access Health Informa tion Online using Patient Portal and [employer] Apps Indication:Smoker Start:20-Dec-2020 Instruction Type:Patient Education Patient Instructions Indication:Elevated liver enzymes Start:30-Nov-2020 Instruction Type:Provider Instructions for Treatment How to Access Health Informa tion Online using Patient Portal and 3[employer] Apps Indication:Smoker Start:30-Nov-2020 Instruction Type:Patient Education Patient Instructions Indication:Smoker Start:29-Oct-2020 Instruction Type:Provider Instructions for Treatment How to Access Health Informa tion Online using Patient Portal and [employer] Apps Indication:Smoker Start:29-Oct-2020 Instruction Type:Patient Education Name Dates Details Patient Instructions Indication:Smoker Start:20-Dec-2020 Instruction Type:Provider Instructions for Treatment How to Access Health Informa tion Online using Patient Portal and 3rd [employer] Apps Indication:Smoker Start:20-Dec-2020 Instruction Type:Patient Education Patient Instructions Indication:Elevated liver enzymes Start:30-Nov-2020 Instruction Type:Provider Instructions for Treatment How to Access Health Informa tion Online using Patient Portal and 3rd [employer] Apps Indication:Smoker Start:30-Nov-2020 Instruction Type:Patient Education Patient Instructions Indication:Smoker Start:29-Oct-2020 Instruction Type:Provider Instructions for Treatment How to Access Health Informa tion Online using Patient Portal and 3rd [employer] Apps Indication:Smoker Start:29-Oct-2020 Instruction Type:Patient Education Name Dates Details Patient Instructions Indication:Smoker Start:20-Dec-2020 Instruction Type:Provider Instructions for Treatment How to Access Health Informa tion Online using Patient Portal and 3rd [employer] Apps Indication:Smoker Start:20-Dec-2020 Instruction Type:Patient Education Patient Instructions Indication:Elevated liver enzymes Start:30-Nov-2020 Instruction Type:Provider Instructions for Treatment How to Access Health Informa tion Online using Patient Portal and 3rd [employer] Apps Indication:Smoker Start:30-Nov-2020 Instruction Type:Patient Education Patient Instructions Indication:Smoker Start:29-Oct-2020 Instruction Type:Provider Instructions for Treatment How to Access Health Informa tion Online using Patient Portal and 3rd [employer] Apps Indication:Smoker Start:29-Oct-2020 Instruction Type:Patient Education Additional Source Comments INFORMATION SOURCE (unrecogn ized section and content) DATE CREATED AUTHOR AUTHOR'S ORGANIZ ATION 09/19/2018 [facility] DATE CREATED AUTHOR AUTHOR'S ORGANIZ ATION 02/12/2021 [facility] DATE CREATED AUTHOR AUTHOR'S ORGANIZ ATION 10/08/2021 [facility] DATE CREATED AUTHOR AUTHOR'S ORGANIZ ATION 02/11/2023 [facility] DATE CREATED AUTHOR AUTHOR'S ORGANIZ ATION 09/10/2023 [facility] Source Comments (unrecognize d section and content) In the event this informatio n is protected by the Federal Confidentiality of Alcohol and Drug Abuse Patient Records regulations: The Federal rules restrict any use of the information to criminally investigate or prosecute any alcohol or drug abuse patient.[facility] the event this information is protected by the Federal Confidentiality of Alcohol and Drug Abuse Patient Records regulations: The Federal rules restrict any use of the information to criminally investigate or prosecute any alcohol or drug abuse patient.[facility] Reason for Visit (unrecogniz ed section and content) 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 This clinical summary was aggregated from multiple sources. Caution should be exercised in using it in the provision of clinical care. This summary normalizes information from multiple sources, and as a consequence, information in this document may materially change the coding, format and clinical context of patient data. In addition, data may be omitted in some cases. CLINICAL DECISIONS SHOULD BE BASED ON THE PRIMARY CLINICAL RECORDS. [facility]. provides no warranty or guarantee of the accuracy or completeness of information in this document.
[2023-10-08 11:16] LABS: CRP 6.96 mg/L (0.0-3.0); Rheumatoid Factor < 10.0 IU/mL (<15)
[2023-10-08 11:31] LABS: Erythrocyte Sedimentation Rate 26 mm/hr (0-30)
[2023-10-09 11:08] LABS: ANTINUCLEAR ANTIBODIES DIRECT Negative (Negative)
[2023-10-09 15:08] LABS: CCP IgG Antibodies 7 units (0-19); Cytoplasmic Ab (C-ANCA) <1:20 titer (Neg:<1:20); Perinuclear Ab (P-ANCA) <1:20 titer (Neg:<1:20)
== END | disposition home or self-care (01) ==
PROVIDERS: PCP Nurse Practitioner Family; Referring Provider Internal Medicine Critical Care Medicine; Visit Provider Internal Medicine Critical Care Medicine
DX: J98.4 Other disorders of lung (principal); R06.02 Shortness of breath
CPT/HCPCS: 36415; 85652; 86038; 86140; 86200; 86225; 86235; 86256; 86431

== ENCOUNTER → 2023-11-04 | Outpatient (CLI) | payer OTHER, SELFPAY ==
--- NOTE | 2023-11-04 09:44 | ECHOD_ITS ---
Reason For Study: Dyspnea/SOB Procedure This was a 2D Doppler, Color Flow transthoracic echocardiogram. Exam performed in department. Left Ventricle Normal LV size. Left ventricular systolic function is normal. The estimated ejection fraction is 60 %. No regional wall motion abnormalities noted. Right Ventricle Normal RV size. Normal systolic function. Atria Normal left atrium. Normal right atrium. Hypermobile atrial septum. Intact atrial septum. Bubble contrast study negative for right to left interatrial shunt. Mitral Valve Normal mitral valve. Tricuspid Valve Normal tricuspid valve. Mild tricuspid valve insufficiency. Pulmonary artery systolic pressure is 20 mmHg. Aortic Valve Normal aortic valve. Trisinus/trileaflet aortic valve. Pulmonic Valve Normal pulmonic valve. Great Vessels Normal aortic root. The pulmonary artery is normal size. Normal inferior vena cava. Pericardium/Pleural No pericardial effusion. Medication Performed a rapid injection of agitated mix of 9 cc saline and 1cc air to assess for atrial septal defect. MMode/2D Measurements & Calculations LVIDd: 4.7 cm IVSd: 0.90 cm Ao root diam: 2.6 cm LVIDs: 3.0 cm LVPWd: 0.94 cm RVDd: 2.4 cm FS: 36.3 % LAV(MOD-bp): 30.7 ml LVAd ap4: 24.6 cm2 SV(MOD-sp4): 39.8 ml LAV(MOD-bp) Indexed: 16.3 ml/m2 LVLd ap4: 7.6 cm LAV(MOD-sp2): 27.9 ml EDV(MOD-sp4): 66.2 ml LAV(MOD-sp4): 32.4 ml EDV(sp4-el): 67.4 ml LVAs ap4: 14.1 cm2 LVLs ap4: 6.5 cm ESV(MOD-sp4): 26.4 ml ESV(sp4-el): 25.9 ml EF(MOD-sp4): 60.1 % EF(sp4-el): 61.6 % SV(sp4-el): 41.5 ml LA A4 area: 12.8 cm2 LA dimension(2D): 3.5 cm RA A4 area: 9.1 cm2 TAPSE: 2.0 cm Time Measurements MV dec time: 0.22 sec Doppler Measurements & Calculations MV E max oscar: 84.3 cm/sec Lat Peak E' Oscar: 12.2 cm/sec Med Peak E' Oscar: 9.7 cm/sec MV A max oscar: 74.5 cm/sec E/E' lat: 6.9 E/E' med: 8.7 MV E/A: 1.1 MV dec slope: 375.7 cm/sec2 Ao V2 max: 122.6 cm/sec LV V1 max: 101.3 cm/sec Ao max P.0 mmHg LV V1 max P.1 mmHg Ao V2 mean: 88.5 cm/sec Ao mean P.5 mmHg Ao V2 VTI: 26.2 cm PA V2 max: 88.3 cm/sec TR max oscar: 199.6 cm/sec TR max P.9 mmHg ECHO/Echo Complete Interpretation Summary Hypermobile atrial septum. Normal LV size. Left ventricular systolic function is normal. The estimated ejection fraction is 60 %. Bubble contrast study negative for right to left interatrial shunt. Mild tricuspid valve insufficiency. Ordering Physician: Jean Palacios Referring Physician: Azucena Murphy Performed By: Yoly Sears, NADEGE, RVT
== END | disposition home or self-care (01) ==
PROVIDERS: PCP Nurse Practitioner Family; Referring Provider Internal Medicine Critical Care Medicine; Visit Provider Internal Medicine Critical Care Medicine
DX: J98.4 Other disorders of lung (principal); R06.09 Other forms of dyspnea
CPT/HCPCS: 93306; A4216